=== PATIENT | female | born 1950 | race Caucasian/White ===

== ENCOUNTER → 2016-08-12 | Outpatient (CLI) | payer OTHER ==
[2016-08-12 07:43] LABS: Blood Urea Nitrogen 13 mg/dL (7-17); Non-African American GFR(MDRD) >60 (>60 ml/min/1.73 sqM)
--- NOTE | 2016-08-12 13:03 | CT ---
EXAMINATION TYPE: CT abdomen pelvis w con DATE OF EXAM: 08/12/2016 COMPARISON: NONE INDICATION: Abdominal pain DLP: 383.10 mGycm, Automated exposure control for dose reduction was used. CONTRAST: 100 ml mL of Omnipaque 300. Study performed with Oral Contrast Patient was premedicated, no adverse reaction to contrast is reported. TECHNIQUE: Axial images were obtained from above the diaphragm to the pubic rami in the axial plane a t 5 mm thick sections. Reconstructed images are reviewed on the computer in the coronal plane. FINDINGS: Limited CT sections are obtained the lung bases. The lung bases are clear. Coronary artery calcific ations present. CT ABDOMEN: Liver: Normal Spleen: Normal Pancreas: Normal Adrenal glands: The adrenal glands are normal. Gallbladder: Surgically absent Kidneys: No masses are evident. No hydronephrosis is present. No cysts are present. Delayed images were obtained through the kidneys, which remain unremarkable. Aorta: Vascular calcification is within the aorta. Inferior vena cava: Normal. CT PELVIS: Loops of bowel within the abdomen and pelvis are normal. Diverticular changes are within the sigm oid colon. There is incomplete distention through the sigmoid colon. There are additional loops of artur wel lacking oral contrast are incompletely distended limiting their evaluation. Appendix: Not visualized Urinary bladder: Limited evaluation. Genitourinary structures: Uterus is unremarkable. No suspicious adnexal masses are evident. Osseous structures: No suspicious lytic or sclerotic lesions. IMPRESSIONS: 1. Sigmoid diverticulosis without acute diverticulitis. 2. No suspicious acute changes.
== END | disposition home or self-care (01) ==
LOC: RADCTMAIN 06:57
DX: K57.30 Diverticulosis of large intestine without perforation or abscess without bleeding (principal); R10.9 Unspecified abdominal pain
CPT/HCPCS: 82565; 84520; 74177; 36415; Q9967

== ENCOUNTER → 2018-09-22 | Outpatient (CLI) | payer OTHER | END | disposition home or self-care (01) | LOC: RADUSWWP 12:16 | DX: I73.9 Peripheral vascular disease, unspecified (principal) | CPT/HCPCS: 93922 ==

== ENCOUNTER → 2018-10-04 | Outpatient (CLI) | payer OTHER ==
--- NOTE | 2018-10-04 13:06 | BD ---
EXAMINATION TYPE: Axial Bone Density DATE OF EXAM: 10/04/2018 COMPARISON: NONE CLINICAL HISTORY: screening Height: 5' 1/2 Weight: 88 FRAX RISK QUESTIONS: Family History (Parent hip fracture): y Secondary Osteoporosis: 4. Malnutrition: y Current Tobacco Use: y RISK FACTORS HISTORY OF: Active: n Postmenopausal woman: y Poor Health: y MEDICATIONS: Additional Medications: vitamin D see complete list in PACS Additional History: EXAM MEASUREMENTS: Bone mineral densitometry was performed using the [employer] System. Bone mineral density as measured about the Lumbar spine is: ----- L1-L4(G/cm2): 1.193 T Score Values are as follows: ----- L2: -1.1 ----- L3: 0.4 ----- L4: 1.8 ----- L1-L4: 0.1 Bone mineral density about the R hip (g/cm2): 0.586 Bone mineral density about the L hip (g/cm2): 0.557 T Score values are as follows: -----R Neck: -3.2 -----L Neck: -3.5 -----R Total: -3.4 -----L Total: -3.6 IMPRESSION: Osteoporosis (T Score less than -2.5). There is increased fracture risk and therapy is usually indicated based on age. Re-Screen 1-2 years. NOTE: T-SCORE=SD OF THE YOUNG ADULT MEAN.
== END | disposition home or self-care (01) ==
LOC: RADBDWWP 12:14
DX: M81.8 Other osteoporosis without current pathological fracture (principal)
CPT/HCPCS: 77080

== ENCOUNTER → 2018-10-10 | Outpatient (CLI) | payer OTHER ==
--- NOTE | 2018-10-10 10:46 | US ---
EXAMINATION TYPE: US abdomen complete DATE OF EXAM: 10/10/2018 COMPARISON: CT 08/12/2016 CLINICAL HISTORY: Z72.0 Tobacco use. Pulsatile area in abdomen. EXAM MEASUREMENTS: Liver Length: 12.8 cm Gallbladder Wall: Surgically absent CBD: 0.3 cm Spleen: 9.5 cm Right Kidney: 9.2 x 3.5 x 4.4 cm Left Kidney: 9.0 x 4.1 x 4.4 cm Pancreas: Tail obscured by overlying bowel gas, visualized portions wnl Liver: Heterogeneous Gallbladder: Surgically absent Evidence for sonographic Carreno's sign: No CBD: wnl Spleen: wnl Right Kidney: No hydronephrosis or masses seen Left Kidney: No hydronephrosis or masses seen Upper IVC: wnl Abd Aorta: Moderate atherosclerotic changes visualized. Proximal portion appears ectatic. No sonogra phic evidence for AAA The liver is heterogeneous. The intrahepatic portion of the IVC is within normal limits. Common b ile duct is unremarkable. The visualized portions of the pancreas are homogenous. The spleen is unr emarkable. Kidneys are symmetric and free of hydronephrosis. No renal lesions are seen. IMPRESSION: Hepatic heterogeneity may reflect fatty liver. Correlate clinically.
== END | disposition home or self-care (01) ==
LOC: RADUSWWP 10:06
DX: Z72.0 Tobacco use (principal)
CPT/HCPCS: 76700

== ENCOUNTER 2020-10-14 12:06 | Emergency (ER) | payer OTHER ==
[2020-10-14 12:45] VITALS: RESP 18; TEMP 98.4
--- NOTE | 2020-10-14 13:39 | CT ---
EXAMINATION TYPE: CT brain wo con DATE OF EXAM: 10/14/2020 COMPARISON: 01/22/2010 HISTORY: 70-year-old female with pain after Posterior head injury 2 days ago. TECHNIQUE: Examination was done in axial plane without intravenous contrast. Coronal and sagittal r econstructions performed. CT DLP: 1092.4 mGycm Automated exposure control for dose reduction was used. FINDINGS: There is no evidence of acute intracranial hemorrhage, acute ischemic changes, mass, mass-effect, or extra-axial fluid collection. There is no effacement of cerebral sulci or basal subarachnoid cister ns. There is no hydrocephalus. There is no midline shift. Waldron-white matter distinction is preserv ed. There is moderate to marked bifrontal atrophy. Paranasal sinuses well pneumatized. The globes are intact. Minimal trapped fluid inferior most mastoi d air cells on both sides. IMPRESSION: Moderate to marked bifrontal atrophy. No acute intracranial abnormality seen.
--- NOTE | 2020-10-14 13:48 | ED ---
Head Injury HPI - General Chief complaint: Head Injury Stated complaint: head injury Time Seen by Provider: 10/14/20 12:49 Source: patient, RN notes reviewed Mode of arrival: ambulatory Limitations: no limitations - History of Present Illness Initial comments: This is a 70-year-old female presents emergency Department chief complaint of head injury. Patient states she slowly fell backwards striking her in the bathtub. Patient states she had no loss conscious but states she still has a headache from the other day. Patient doesn't know blood thinners or neck pain no blurred vision no nausea vomiting no focal weakness. - Related Data Allergies/Adverse reactions: Allergies Allergy/AdvReac Type Severity Reaction Status Date / Time Iodinated Contrast Media Allergy Rash/Hives Verified 10/14/20 12:40 Review of Systems ROS Statement: Those systems with pertinent positive or pertinent negative responses have been documented in the HPI. ROS Other: All systems not noted in ROS Statement are negative. Past Medical History Past Medical History: COPD, Hypertension Additional Past Medical History / Comment(s): crohns, History of Any Multi-Drug Resistant Organisms: None Reported Past Surgical History: Bowel Resection Additional Past Surgical History / Comment(s): x2, eye surgery Past Psychological History: Bipolar Smoking Status: Vaper Past Alcohol Use History: None Reported Past Drug Use History: None Reported General Exam Limitations: no limitations General appearance: alert, in no apparent distress Head exam: Present: atraumatic, normocephalic. Absent: normal inspection (Small hematoma posterior) Eye exam: Present: normal appearance, PERRL, EOMI. Absent: scleral icterus, conjunctival injection, periorbital swelling ENT exam: Present: normal exam, mucous membranes moist Neck exam: Present: normal inspection. Absent: tenderness, meningismus, lymphadenopathy Respiratory exam: Present: normal lung sounds bilaterally. Absent: respiratory distress, wheezes, rales, rhonchi, stridor Cardiovascular Exam: Present: regular rate, normal rhythm, normal heart sounds. Absent: systolic murmur, diastolic murmur, rubs, gallop, clicks Neurological exam: Present: alert, oriented X3, CN II-XII intact, reflexes normal. Absent: motor sensory deficit Course Vital Signs 10/14/20 12:40 Temperature 98.4 F Pulse Rate 73 Respiratory 18 Rate Blood Pressure 141/89 O2 Sat by Pulse 98 Oximetry Medical Decision Making - Medical Decision Making CT is unremarkable. Patient is a head contusion will be discharged in stable condition. Disposition Clinical Impression: Contusion of scalp Disposition: HOME SELF-CARE Condition: Stable Instructions (If sedation given, give patient instructions): Head Injury (ED) Additional Instructions: Please return to the Emergency Department if symptoms worsen or any other concerns. Is patient prescribed a controlled substance at d/c from ED?: No Referrals: [facility],Clinic [Primary Care Provider] - 1-2 days Time of Disposition: 13:48
[2020-10-14 14:02] VITALS: BP 138/79; PULSE 76
== END 2020-10-14 14:01 | disposition home or self-care (01) ==
LOC: EC 12:06
DX: S00.03XA Contusion of scalp, initial encounter (principal); I10 Essential (primary) hypertension; J44.9 Chronic obstructive pulmonary disease, unspecified; F17.290 Nicotine dependence, other tobacco product, uncomplicated; W18.2XXA Fall in (into) shower or empty bathtub, initial encounter
CPT/HCPCS: 70450; 99284

== ENCOUNTER 2022-05-09 11:35 | Inpatient (IN) | payer OTHER, MEDICARE ==
[2022-05-09] MEDS ORDERED: HYDROmorphone 0.5 MG/0.5 ML SYRINGE IVP STA (11:39)
[2022-05-09] MEDS ORDERED: ONDANSETRON 4 MG/2 ML VIAL IVP STA (11:39)
--- NOTE | 2022-05-09 11:51 | ED ---
Lower Extremity Injury HPI - General Chief Complaint: Extremity Injury, Lower Stated Complaint: lt hip injury Time Seen by Provider: 05/09/22 11:38 Source: patient, EMS, RN notes reviewed Mode of arrival: EMS Limitations: no limitations - History of Present Illness Initial Comments: This a 71-year-old female presents emergency Department chief complaint of slip and fall. Patient states she slipped on some ice onto her left hip. Patient complains of no head injury no loss conscious. Patient states that she has severe pain to her left hip with any movement. No prior orthopedic surgeries. Patient denies any blood thinners denies abdominal pain or back pain. Patient declined pain meds from EMS. - Related Data Allergies Allergy/AdvReac Type Severity Reaction Status Date / Time Iodinated Contrast Media Allergy Rash/Hives Verified 10/14/20 12:40 Review of Systems ROS Statement: Those systems with pertinent positive or pertinent negative responses have been documented in the HPI. ROS Other: All systems not noted in ROS Statement are negative. Past Medical History Past Medical History: COPD, Hypertension Additional Past Medical History / Comment(s): crohns, History of Any Multi-Drug Resistant Organisms: None Reported Past Surgical History: Bowel Resection Additional Past Surgical History / Comment(s): x2, eye surgery Past Psychological History: Bipolar Smoking Status: Vaper Past Alcohol Use History: None Reported Past Drug Use History: None Reported General Exam Limitations: no limitations General appearance: alert, in no apparent distress Head exam: Present: atraumatic, normocephalic, normal inspection Eye exam: Present: normal appearance, PERRL, EOMI. Absent: scleral icterus, conjunctival injection, periorbital swelling ENT exam: Present: normal exam, normal oropharynx, mucous membranes moist Neck exam: Present: normal inspection, full ROM. Absent: tenderness, meningismus, lymphadenopathy Respiratory exam: Present: normal lung sounds bilaterally. Absent: respiratory distress, wheezes, rales, rhonchi, stridor Cardiovascular Exam: Present: regular rate, normal rhythm, normal heart sounds. Absent: systolic murmur, diastolic murmur, rubs, gallop, clicks GI/Abdominal exam: Present: soft, normal bowel sounds. Absent: distended, tenderness, guarding, rebound, rigid Extremities exam: Present: other (Tenderness to left hip, there is some shortening noted unable to fully extend, neurovascular intact) Back exam: Present: full ROM. Absent: tenderness, paraspinal tenderness, vertebral tenderness Neurological exam: Present: alert, oriented X3, CN II-XII intact, reflexes normal. Absent: motor sensory deficit Course Vital Signs 05/09/22 11:42 Temperature 97.7 F Pulse Rate 76 Respiratory 20 Rate Blood Pressure 141/93 O2 Sat by Pulse 97 Oximetry Medical Decision Making - Medical Decision Making Was pt. sent in by a medical professional or institution (DEANDRA Kendrick, SCALES INSPECTOR, urgent care, hospital, or assisted...) When possible be specific @ -No Did you speak to anyone other than the patient for history (EMS, parent, family, police, friend...)? What history was obtained from this source @ -No Did you review nursing and triage notes (agree or disagree)? Why? @ -I reviewed and agree with nursing and triage notes Were old charts reviewed (outside hosp., previous admission, EMS record, old EKG, old radiological studies, urgent care reports/EKG's, assisted records)? Report findings @ -No old charts were reviewed Differential Diagnosis (chest pain, altered mental status, abdominal pain women, abdominal pain men, vaginal bleeding, weakness, fever, dyspnea, syncope, headache, dizziness, GI bleed, back pain, seizure, CVA, palpatations, mental health, musculoskeletal)? @ -Hip fracture, hip contusion, back pain, EKG interpreted by me (3pts min.). @ -As above X-rays interpreted by me (1pt min.). @ -Left hip x-ray shows fracture at base of neck, intertrochanteric region CT interpreted by me (1pt min.). @ -None done U/S interpreted by me (1pt. min.). @ -None done What testing was considered but not performed or refused? (CT, X-rays, U/S, labs)? Why? @ -None What meds were considered but not given or refused? Why? @ -None Did you discuss the management of the patient with other professionals (professionals i.e. DEANDRA Kendrick, SCALES INSPECTOR, lab, RT, psych nurse, social sciences instructor, banquet set up person, teacher, deputy probation officer, immigration case manager)? Give summary @ -Dr. Hernandez for admission for left hip fracture with consult to medicine medicine was consult. Was smoking cessation discussed for >3mins.? @ -No Was critical care preformed (if so, how long)? @ -No Were there social determinants of health that impacted care today? How? (Homelessness, low income, unemployed, alcoholism, drug addiction, transportation, low edu. Level, literacy, decrease access to med. care, fpc, rehab)? @ -No Was there de-escalation of care discussed even if they declined (Discuss DNR or withdrawal of care, Hospice)? DNR status @ -No What co-morbidities impacted this encounter? (DM, HTN, Smoking, COPD, CAD, Cancer, CVA, ARF, Chemo, Hep., AIDS, mental health diagnosis, sleep apnea, morbid obesity)? @ -None Was patient admitted / discharged? Hospital course, mention meds given and route, prescriptions, significant lab abnormalities, going to OR and other pertinent info. @ -Admitted patient has left hip fracture patient admitted to surgery with consult to medicine labs, EKG and chest x-ray were performed. Undiagnosed new problem with uncertain prognosis? @ -No Drug Therapy requiring intensive monitoring for toxicity (Heparin, Nitro, Insulin, Cardizem)? @ -No Were any procedures done? @ -No Diagnosis/symptom? @ -Fall, left hip fracture Acute, or Chronic, or Acute on Chronic? @ -[Acute Uncomplicated (without systemic symptoms) or Complicated (systemic symptoms)? @ -Uncomplicated Side effects of treatment? @ -No Exacerbation, Progression, or Severe Exacerbation? @ -No Poses a threat to life or bodily function? How? (Chest pain, USA, HI, pneumonia, PE, COPD, DKA, ARF, appy, cholecystitis, CVA, Diverticulitis, Homicidal, Suicidal, threat to staff... and all critical care pts) @ -No - Lab Data Result diagrams: 05/09/22 11:45 05/09/22 11:45 Lab Results 05/09/22 05/09/22 05/09/22 Range/Units 11:45 11:45 11:45 WBC 7.4 (3.8-10.6) k/uL RBC 3.84 (3.80-5.40) m/uL Hgb 13.6 (11.4-16.0) gm/dL Hct 39.3 (34.0-46.0) % MCV 102.5 H (80.0-100.0) fL MCH 35.3 H (25.0-35.0) pg MCHC 34.5 (31.0-37.0) g/dL RDW 14.1 (11.5-15.5) % Plt Count 119 L (150-450) k/uL MPV 8.2 Neutrophils % 86 % Lymphocytes % 9 % Monocytes % 4 % Eosinophils % 0 % Basophils % 1 % Neutrophils # 6.4 (1.3-7.7) k/uL Lymphocytes # 0.6 L (1.0-4.8) k/uL Monocytes # 0.3 (0-1.0) k/uL Eosinophils # 0.0 (0-0.7) k/uL Basophils # 0.0 (0-0.2) k/uL Macrocytosis Slight PT 11.0 (9.0-12.0) sec INR 1.0 (<1.2) APTT 22.6 (22.0-30.0) sec Sodium 138 (137-145) mmol/L Potassium 3.8 (3.5-5.1) mmol/L Chloride 110 H (98-107) mmol/L Carbon Dioxide 19 L (22-30) mmol/L Anion Gap 9 mmol/L BUN 23 H (7-17) mg/dL Creatinine 0.73 (0.52-1.04) mg/dL Est GFR (CKD-EPI)AfAm >90 (>60 ml/min/1.73 sqM) Est GFR (CKD-EPI)NonAf 83 (>60 ml/min/1.73 sqM) Glucose 144 H (74-99) mg/dL Calcium 8.8 (8.4-10.2) mg/dL Total Bilirubin 0.7 (0.2-1.3) mg/dL AST 35 (14-36) U/L ALT 21 (4-34) U/L Alkaline Phosphatase 78 (38-126) U/L Total Protein 6.5 (6.3-8.2) g/dL Albumin 4.0 (3.5-5.0) g/dL Disposition Clinical Impression: Hip fracture, left Disposition: ADMITTED IP TO THIS HOSP Condition: Fair Referrals: [facility],Clinic [Primary Care Provider] - 1-2 days Time of Disposition: 12:31
[2022-05-09 12:05] LABS: Basophils % (A) 1 %; Eosinophils % (A) 0 %; HCT 39.3 % (34.0-46.0); HGB 13.6 gm/dL (11.4-16.0); Lymphocytes # (A) 0.6 k/uL (1.0-4.8); Lymphocytes % (A) 9 %; MCH 35.3 pg (25.0-35.0); MCHC 34.5 g/dL (31.0-37.0); MCV 102.5 fL (80.0-100.0); Macrocytosis Slight; Mean Platelet Volume 8.2; Monocytes # (A) 0.3 k/uL (0-1.0); Monocytes % (A) 4 %; Neutrophils # (A) 6.4 k/uL (1.3-7.7); Neutrophils % (A) 86 %; Platelet Count 119 k/uL (150-450); RBC 3.84 m/uL (3.80-5.40); RDW 14.1 % (11.5-15.5); WBC 7.4 k/uL (3.8-10.6)
[2022-05-09 12:18] LABS: ALT 21 U/L (4-34); AST 35 U/L (14-36); African American GFR (CKD) >90 (>60 ml/min/1.73 sqM); Alkaline Phosphatase 78 U/L (38-126); Anion Gap 9 mmol/L; Blood Urea Nitrogen 23 mg/dL (7-17); Calcium 8.8 mg/dL (8.4-10.2); Carbon Dioxide 19 mmol/L (22-30); Chloride 110 mmol/L (98-107); Glucose 144 mg/dL (74-99); Non-African American GFR(CKD) 83 (>60 ml/min/1.73 sqM); Potassium 3.8 mmol/L (3.5-5.1); Sodium 138 mmol/L (137-145); Total Bilirubin 0.7 mg/dL (0.2-1.3); Total Protein 6.5 g/dL (6.3-8.2)
--- NOTE | 2022-05-09 12:22 | XR ---
EXAMINATION TYPE: XR chest 1V DATE OF EXAM: 05/09/2022 12:14 PM COMPARISON: Chest radiographs from 01/22/2010 TECHNIQUE: XR chest 1V Portable AP radiograph of the chest. CLINICAL INDICATION:Female, 71 years old with history of pain; FINDINGS: Lungs/Pleura: There is no evidence of pleural effusion, focal consolidation, or pneumothorax. Pulmonary vascularity: Unremarkable. Heart/mediastinum: Cardiomediastinal silhouette is unremarkable. Musculoskeletal: No acute osseous pathology. IMPRESSION: No acute cardiopulmonary disease/process.
--- NOTE | 2022-05-09 12:22 | XR ---
EXAMINATION TYPE: XR Hip LT and AP Pelvis DATE OF EXAM: 05/09/2022 12:14 PM INDICATION: Patient age:Female; 71 years old; Reason for study: pain; PHH. COMPARISON: None. TECHNIQUE: The left hip was examined in the frontal and lateral projections and a AP pelvis. FINDINGS: Comminuted fractures of the left proximal femur with varus deformity. Suspected to femoral neck base/intertrochanteric with shortening present. The remainder of the pelvic structures appear intact. There is mild degeneration with osteophyte formation of the hips. Multilev el disc degeneration changes seen in the lower spine. IMPRESSION: Comminuted left proximal femur fracture with varus deformity.
[2022-05-09 12:26] LABS: Partial Thromboplastin Time 22.6 sec (22.0-30.0)
[2022-05-09] MEDS ORDERED: NALOXONE 0.4 MG/ML 1 ML VIAL IV PRN (12:42)
[2022-05-09] MEDS ORDERED: LORazepam 0.5 MG TAB PO PRN (12:42)
[2022-05-09] MEDS ORDERED: ACETAMINOPHEN TAB 325 MG TAB PO PRN (12:42)
[2022-05-09] MEDS ORDERED: ONDANSETRON 4 MG/2 ML VIAL IVP PRN (12:42)
[2022-05-09] MEDS ORDERED: LORazepam 1 MG TAB PO STA (13:36)
--- NOTE | 2022-05-09 14:09 | P.CONS ---
History of Present Illness - Reason for Consult Consult date: 05/09/22 - Chief Complaint Medical clearance - History of Present Illness 71-year-old woman with medical history of COPD, Crohn's disease with previous colovesicular fistula requiring surgical repair, bipolar disorder, benzodiazepine dependence, severe protein calorie malnutrition who presented after mechanical fall resulting in left hip fracture. Orthopedic surgery consult to medical team for preoperative clearance as well as medical management. Patient says that she was trying to shovel snow from her driveway when she had a mechanical fall by slipping on ice and fell pain in her left hip. Afterwards, she was brought in by ambulance to the hospital for further evaluation. 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 She does not have any steps at home and lives on a one floor. Patient denies drinking, reports having quit smoking many years ago after significant smoke exposure resulting in COPD. She says she was also diagnosed with bipolar disorder by the [place] and is taking topiramate, fluoxetine, Ativan 1 mg 3 times a day for this. She also reports taking a "orange powder" for her Crohn's disease, which a quick search on the Internet seems to indicate is budesonide. During her history taking, she also notes that she's been having a pulsatile abdominal mass for the last 10-15 years and it seems like it's gotten bigger according to her, and according to her friend who is at bedside, she's had increasing discoloration of her lower extremities to the point where they are dark purple to sometimes black. Otherwise, patient denies fevers, chills, nausea, vomiting, chest pain, palpitations, syncope, presyncope, cough, dyspnea, abdominal pain, constipation, diarrhea, dysuria, dyschezia, numbness/weakness of extremities. In the emergency room, patient was afebrile, 141/93, heart rate 76, 97% on room air. CBC is remarkable for an MCV of 102.5 but normal hemoglobin of 13.6, thrombocytopenia to 119. Chemistries show chloride of 110, carbon dioxide of 19, no anion gap, BUN is 23, creatinine is 0.73. Liver function tests are unremarkable. Coags are unremarkable. Chest x-ray shows hyperinflation with left hemidiaphragmatic paralysis, flattening of the right hemidiaphragm, otherwise clear parenchyma. Hip/pelvis x-ray shows comminuted left proximal femur fracture with varus deformity. Orthopedic surgery service admit the patient and requested medical consultation. All Systems reviewed and pertinent positives and negatives noted in HPI, all other symptoms are negative Gen: in no apparent distress, resting comfortably in bed, appears generally tremulous, elderly, cachectic Eyes: PERRL, no scleral injection or icterus HENT: normocephalic, atraumatic, good hearing acuity, moist mucous membranes Neck: no tracheal deviation, full range of motion Resp: good air exchange, breathing comfortably with no accessory muscle use, no tactile fremitus, clear to auscultation bilaterally CVS: good distal perfusion x 4, no pitting edema, regular rate and rhythm without murmurs GI: soft, NTTP, ND, no hepatosplenomegaly, palpable pulsatile mass of approximately 6-7 cm : no suprapubic tenderness, no CVAT, herrera catheter not present MSK: no clubbing, no cyanosis, no noted contractures of extremities, poor capillary refill taking 4-5 seconds and the bilateral lower extremities, poor dorsal pedis pulse bilaterally, good tibialis posterior pulses bilaterally Skin: no noted rashes, petechiae; temperature of skin is appropriate Neuro: moving all extremities without signs of weakness, CN II-XII intact Psych: cooperative, euthymic mood, insight and judgment intact Labs and imaging as above Assessment: Preoperative clearance Abdominal pulsatile mass Severe protein calorie malnutrition COPD without exacerbation Benzodiazepine dependence Bipolar disorder History of Crohn's disease Plan: Vital signs reviewed and noted in HPI Labs including CBC, BMP, liver function tests, coags are reviewed and noted in HPI Chest x-ray is personally interpreted noted in HPI Hip/pelvis x-ray is reviewed and noted in HPI Case was discussed with the orthopedic surgery service regarding possibility of patient's abdominal aortic aneurysm as well as vasculopathy which may affect healing, this should not preclude patient from being cleared medically for surgery while we work simultaneously to optimize vascular risk factors Case was also discussed with vascular surgery who recommended imaging of abdominal aorta with runoff as well as ankle-brachial indexes bilaterally NSQIP risk calculator estimates the risk of mace at 0.2% for this procedure which is average. However, I do feel like this is an underestimate of this patient's risk of surgical complication given likely peripheral arterial disease as well as her severe protein calorie malnutrition as evidenced by her BMI 14.2 and significant cachexia on exam; however, patient's METs estimation is greater than 4, there is no contraindication to surgery at this time, patient may proceed without further need of testing I ordered CT abdominal aorta with runoff to evaluate for abdominal aortic aneurysm as well as peripheral arterial disease Ankle-brachial indexes have been ordered CBC, basic metabolic panel, magnesium ordered for tomorrow Resume 1 mg by mouth Ativan 3 times a day for patient's benzodiazepine de pendence Remaining medication reconciliation is pending medication history completion Patient is adamantly DO NOT RESUSCITATE/DO NOT INTUBATE, but does understand that CODE STATUS must be reversed for 24 hours following her surgery Patient's DURABLE POWER OF GALLERY OR MUSEUM CURATOR is at bedside Past Medical History Past Medical History: COPD, Hypertension Additional Past Medical History / Comment(s): crohns, History of Any Multi-Drug Resistant Organisms: None Reported Past Surgical History: Bowel Resection Additional Past Surgical History / Comment(s): x2, eye surgery Past Psychological History: Bipolar Smoking Status: Vaper Past Alcohol Use History: None Reported Past Drug Use History: None Reported Medications and Allergies Allergies Allergy/AdvReac Type Severity Reaction Status Date / Time Iodinated Contrast Media Allergy Rash/Hives Verified 10/14/20 12:40 Physical Exam Osteopathic Statement: *. No significant issues noted on an osteopathic structural exam other than those noted in the History and Physical/Consult. Vitals: Vital Signs Temp Pulse Resp BP Pulse Ox 05/09/22 11:42 97.7 F 76 20 141/93 97 Intake and Output 05/08/22 05/09/22 05/09/22 22:59 06:59 14:59 Other: Weight 37.648 kg Results CBC & Chem 7: 05/09/22 11:45 05/09/22 11:45 Labs: Abnormal Lab Results - Last 24 Hours (Table) 05/09/22 05/09/22 Range/Units 11:45 11:45 MCV 102.5 H (80.0-100.0) fL MCH 35.3 H (25.0-35.0) pg Plt Count 119 L (150-450) k/uL Lymphocytes # 0.6 L (1.0-4.8) k/uL Chloride 110 H (98-107) mmol/L Carbon Dioxide 19 L (22-30) mmol/L BUN 23 H (7-17) mg/dL Glucose 144 H (74-99) mg/dL
[2022-05-09] MEDS ORDERED: diphenhydrAMINE 50 MG/ML 1 ML VIAL IVP STA (14:41)
[2022-05-09] MEDS ORDERED: methylPREDNISolone SOD SUCCIN 125 MG in SODIUM CHLORIDE 0.9% 100 ML IVPB STA (14:41)
[2022-05-09] MEDS ORDERED: FAMOTIDINE 20 MG/2 ML VIAL IV STA (14:41)
[2022-05-09] MEDS ORDERED: methylPREDNISolone SOD SUCCI 125 MG/2 ML VIAL IVP STA (14:50)
--- NOTE | 2022-05-09 15:38 | US ---
EXAMINATION TYPE: US duplex aorta DATE OF EXAM: 05/09/2022 COMPARISON: NONE CLINICAL HISTORY: AAA aneurysm. TECHNIQUE: Multiple sonographic images of the abdominal aorta are obtained. FINDINGS: EXAM MEASUREMENTS: Abdominal Aorta: Proximal: 2.3 x 2.9 cm Mid: 2.1 x 2.2 cm Distal: 1.7 x 1.6 cm Bifurcation: right, 1.5 x 1.2 cm left,1.3 x 1.2 cm TENNIS INSTRUCTOR NOTES: Normal caliber, heavily calcified aorta. IMPRESSION: Marked atherosclerotic changes of the abdominal aorta and common iliac arteries but no evidence of an eurysm.
[2022-05-09] MEDS: HYDROmorphone 0.5 MG/0.5 ML SYRINGE IVP PRN ×3 (15:42→23:20)
[2022-05-09] MEDS: SYMBICORT 160-4.5 MCG INHALER INHALATION SCH (20:42)
[2022-05-10] MEDS: HYDROmorphone 0.5 MG/0.5 ML SYRINGE IVP PRN ×6 (03:23→20:54)
[2022-05-10] MEDS: LEVOTHYROXINE 25 MCG TAB PO SCH (06:19)
[2022-05-10] MEDS ORDERED: ONDANSETRON 4 MG/2 ML VIAL IVP PRN (07:00)
[2022-05-10] MEDS ORDERED: HYDROmorphone 0.5 MG/0.5 ML SYRINGE IVP PRN ×3 (07:00→09:36)
[2022-05-10] MEDS: CHOLECALCIFEROL 25 MCG (1000 IU) TABLET PO SCH (07:00)
--- NOTE | 2022-05-10 07:56 | P.HPOR ---
History of Present Illness H&P Date: 05/10/22 Patient is a 71-year-old female past medical history Crohn disease, COPD that presented to [facility] emergency department yesterday with complaints of left hip pain following a fall at home. Patient states she was shoveling snow when she slipped and ice. She fell directly onto the left hip. She is unable to get up on her own. A bystander saw her lying on the ground, and called EMS. EMS transported to [facility] emergency department. X-rays in the emergency department revealed a left intertrochanteric hip fracture. The patient was admitted under the care of Dr. Hernandez with a consult placed to internal medicine for preoperative medical evaluation. The patient is examined bedside this morning. She is complaining of isolated left hip pain. She states she did not hit her head when she fell. Per nursing, patient refused CT with runoff that was recommended by vascular surgery. Abdominal ultrasound was ordered due to concern for abdominal aortic aneurysm. The patient has no additional Kevin concerns at this time. Vital signs stable. Past Medical History Past Medical History: COPD, Hypertension Additional Past Medical History / Comment(s): crohns, History of Any Multi-Drug Resistant Organisms: None Reported Past Surgical History: Bowel Resection Additional Past Surgical History / Comment(s): x2, eye surgery Past Anesthesia/Blood Transfusion Reactions: No Reported Reaction Past Psychological History: Bipolar Smoking Status: Vaper Past Alcohol Use History: None Reported Past Drug Use History: None Reported Medications and Allergies Home Medications Medication Instructions Recorded Confirmed Type Albuterol Inhaler [Ventolin Hfa 2 puff INHALATION RT-Q6H PRN 05/09/22 05/09/22 History Inhaler] Cetirizine HCl 10 mg PO DAILY 05/09/22 05/09/22 History Cholecalciferol [Vitamin D3 (25 50 mcg PO DAILY 05/09/22 05/09/22 History Mcg = 1000 Iu)] Cholestyramine (with Sugar) 1 tsp PO BID 05/09/22 05/09/22 History [Cholestyramine Powder] Cyclobenzaprine [Flexeril] 5 mg PO BID PRN 05/09/22 05/09/22 History Dicyclomine [Bentyl] 10 mg PO BID PRN 05/09/22 05/09/22 History Ibuprofen [Motrin] 600 mg PO Q8HR PRN 05/09/22 05/09/22 History LORazepam [Ativan] 1 mg PO TID 05/09/22 05/09/22 History Lactose-Reduced Food [Ensure Plus] 2 can PO BID 05/09/22 05/09/22 History Levothyroxine Sodium [Synthroid] 25 mcg PO DAILY 05/09/22 05/09/22 History Loperamide [Imodium] 4 mg PO TID PRN 05/09/22 05/09/22 History Mometasone/Formoterol [Dulera 200 1 puff INHALATION RT-BID 05/09/22 05/09/22 History Mcg-5 Mcg Inhaler] Sertraline [Zoloft] 200 mg PO DAILY 05/09/22 05/09/22 History Topiramate 50 mg PO DAILY 05/09/22 05/09/22 History azaTHIOprine [Imuran] 50 mg PO DAILY 05/09/22 05/09/22 History metroNIDAZOLE 1% GEL [Metrogel 1%] 1 applic TOPICAL DAILY PRN 05/09/22 05/09/22 History Allergies Allergy/AdvReac Type Severity Reaction Status Date / Time Iodinated Contrast Media Allergy Rash/Hives Verified 05/09/22 14:13 Physical Examination On examination, the patient is sitting up about an open distress. She is alert and oriented 3. Her head appears normocephalic and atraumatic. Her breathing appears nonlabored. On inspection of her bilateral upper extremities, there are no obvious deformities or signs of trauma. On inspection of her right lower extremity, no obvious deformities or signs of trauma. No pain with range of motion of the right hip. On inspection of the left hip, there are no open wounds or lacerations. There is diffuse severe pain with any attempt at range of motion of the left hip. No pain with palpation of the left hip, knee, lower leg, ankle, foot. Motor and sensory function is intact of the left lower extremity. Left posterior tibial pulse is palpated. Results Left hip and pelvis x-rays reviewed. - Labs Labs: Abnormal Lab Results - Last 24 Hours (Table) 05/09/22 05/09/22 Range/Units 11:45 11:45 MCV 102.5 H (80.0-100.0) fL MCH 35.3 H (25.0-35.0) pg Plt Count 119 L (150-450) k/uL Lymphocytes # 0.6 L (1.0-4.8) k/uL Chloride 110 H (98-107) mmol/L Carbon Dioxide 19 L (22-30) mmol/L BUN 23 H (7-17) mg/dL Glucose 144 H (74-99) mg/dL H & H 05/09/22 Range/Units 11:45 Hgb 13.6 (11.4-16.0) gm/dL Hct 39.3 (34.0-46.0) % Coagulation 05/09/22 Range/Units 11:45 INR 1.0 (<1.2) Result Diagrams: 05/09/22 11:45 05/09/22 11:45 Assessment and Plan Assessment: Left intertrochanteric hip fracture Plan: - Clinical and imaging findings were discussed with the patient. Patient was discussed in detail with Dr. Hernandez. Recommend the left hip gamma nail for patient's left intertrochanteric hip fracture. The procedure was discussed with the patient. Risks were discussed with the patient. She gave verbal consent for procedure. Patient is cleared per internal medicine. - Strict nonweightbearing of lower extremity. - We will plan for this morning. NPO diet.
[2022-05-10] MEDS ORDERED: ROCURONIUM 10 MG/ML (5 ML VIAL) IV ONE (07:57)
[2022-05-10] MEDS ORDERED: LIDOCAINE 2% INJ 20 MG/ML (2 ML VIAL) ONE (07:57)
[2022-05-10] MEDS ORDERED: fentaNYL (PF) 50 MCG/ML 2 ML AMP ONE (07:57)
[2022-05-10] MEDS ORDERED: PROPOFOL 10 MG/ML 20 ML VIAL IV ONE (07:57)
[2022-05-10] MEDS ORDERED: IV FLUID CONTINUATION 1,000 ML IV ONE (07:57)
[2022-05-10] MEDS ORDERED: PHENYLEPHRINE-0.9% NACL SYG 1,000 MCG/10 ML SYRINGE ONE (07:57)
[2022-05-10] MEDS ORDERED: GLYCOPYRROLATE 0.2 MG/ML 2 ML VIAL ONE (07:57)
[2022-05-10] MEDS ORDERED: SODIUM CHLORIDE 0.9% 50 ML with ceFAZolin 1,000 MG IV ONE ×2 (07:57)
[2022-05-10] MEDS ORDERED: NEOSTIGMINE 1 MG/ML 10 ML VIAL ONE (07:57)
[2022-05-10] MEDS ORDERED: ONDANSETRON 4 MG/2 ML VIAL ONE (07:57)
[2022-05-10] MEDS ORDERED: DEXAMETHASONE SOD PHOS (MDV) 100 MG/10 ML VIAL ONE (07:57)
[2022-05-10] MEDS ORDERED: SUCCINYLCHOLINE CHLORIDE 200 MG/10 ML VIAL IV ONE (07:57)
[2022-05-10] MEDS: SYMBICORT 160-4.5 MCG INHALER INHALATION SCH ×2 (08:26→19:38)
[2022-05-10 08:58] LABS: Basophils # (A) 0.07 X 10*3/uL (0.00-0.10); Basophils % (A) 0.7 %; Eosinophils # (A) 0.01 X 10*3/uL (0.04-0.35); Eosinophils % (A) 0.1 %; HCT 31.8 % (37.2-46.3); HGB 10.5 g/dL (12.0-15.0); Immature Grans, Automated 0.2 %; Lymphocytes # (A) 1.58 X 10*3/uL (0.90-5.00); Lymphocytes % (A) 16.4 %; MCH 34.7 pg (27.0-32.0); Mean Platelet Volume 11.1 fL (9.5-12.2); Monocytes # (A) 0.95 X 10*3/uL (0.20-1.00); Monocytes % (A) 9.9 %; NRBC Per 100 WBC 0 /100 WBCS (0.0-0.0); Neutrophils % (A) 72.7 %; Platelet Count 158 X 10*3/uL (140-440); RBC 3.03 X 10*6/uL (4.10-5.20); RDW 14.4 % (11.5-14.5); WBC 9.63 X 10*3/uL (4.50-10.00)
[2022-05-10 09:10] LABS: African American GFR (CKD) 37.2 (60.0-200.0); Anion Gap 9.1 mmol/L (10.00-18.00); BUN/Creat Ratio 18.81 Ratio (12.00-20.00); Blood Urea Nitrogen 30.1 mg/dL (9.0-27.0); Calcium 9.2 mg/dL (8.7-10.3); Carbon Dioxide 22.9 mmol/L (20.0-27.5); Magnesium 1.9 mg/dL (1.5-2.4); Non-African American GFR(CKD) 32.1 (60.0-200.0); Potassium 4.6 mmol/L (3.5-5.5)
--- NOTE | 2022-05-10 09:19 | P.OP ---
Date of Procedure: 05/10/22 Preoperative Diagnosis: 1. Left intertrochanteric hip fracture 2. BMI 14 3. Anxiety 4. Osteoporosis Postoperative Diagnosis: Same Procedure(s) Performed: Operative fixation of left intertrochanteric hip fracture with short intramedullary hip screw Anesthesia: NANDINI Surgeon: Brian Hernandez Community Health Representative #1: Ivette Coker Estimated Blood Loss (ml): 100 IV fluids (ml): 1,000 Pathology: none sent Condition: stable Disposition: PACU Indications for Procedure: I met with the patient and their family preoperatively to discuss their injury and treatment options. They have an extra-capsular, intertrochanteric hip fracture and my recommendation was to stabilize the fracture with an intramedullary hip screw to facilitate early mobilization. We discussed the potential risks and complications of this surgical procedure including but certainly not limited to risks from anesthesia, superficial infection, deep infection, fracture nonunion, fracture malunion, hardware failure including broken hardware, varus collapse with lag screw cut out of the femoral head, progression of hip arthritis, limb length discrepancy, symptomatic hardware, need for further surgery including hardware removal and conversion to arthroplasty, DVT, PE, acute coronary event, pressure ulcers, urinary tract infection, failure to thrive, an inability to regain preinjury level of function, and possibly . The patient and their family understand these potential complications and also awknowledge that other less common complications are possible. They provided both their verbal and written consent to go forward with operative fixation of their hip fracture with an intramedullary hip screw. Operative Findings: The fracture reduced with the addition of traction, rotation, and adduction on the Basco table. After making incision and attempting to get the start site was found that the greater trochanter was a free piece and was markedly displaced. Description of Procedure: The patient was identified in preoperative holding and the correct operative extremity was marked with my initials. I reviewed the consent form with the patient and their family and all of their questions were answered. The patient was then brought back to the operating room by anesthesia. Anesthesia, preoperative antibiotics, and tranexamic acid were given by the anesthesia team while on the rney. Both ankles were padded with webril and boots for the Basco table were applied. The patient was then carefully transferred onto the Basco table. A perineal post was immediately placed. The contralateral arm was secured on a well-padded arm magana. The ipsilateral arm was draped across the chest and secured with a pillow, foam, and paper tape to allow access to the proximal femur. Nonsterile drapes were applied to the operative extremity. The height of the table was elevated and the contralateral extremity was dropped towards the floor to facilitate imaging. A timeout was performed identifying the correct patient, operative extremity, and procedure. Fluoroscopy was brought in to assess the fracture. A provisional reduction was performed using longitudinal traction, adduction, and internal rotation. An AP and lateral view were obtained to assess the reduction. The operative extremity was then prepped and draped in the standard sterile fashion. A straight incision was made at the tip of the greater trochanter and extended proximally for 3 cm. Skin and subcutaneous tissues were incised sharply. The underlying fascia was incised in line with the skin incision. An awl was place d just medial to the tip of the greater trochanter on the AP view and colinear with the canal on the lateral view. A 3.2 mm guide pin was then advanced into the proximal femur. The position of the guidepin was verified with fluoroscopy. An opening reamer and soft tissue cannula were placed over the guidepin and used to open the proximal femur to the level of the lesser trochanter. The 3.2 mm guide pin and opening reamer were removed. A short gamma nail was dispensed, hooked up to the targeting arm and I verified that the trochar through the targeting arm lined up with the slots on the nail. The nail was then impacted into the proximal femur until the appropriate depth had been reached. A small stab incision was made over the lateral aspect of the femur using the targeting arm as a reference for the lag screw. Incision was carried down to the skin and fascia down to the lateral cortex of the femur. The trocar was then placed up to the lateral cortex of the femur and a guidepin was placed in the low center position on the AP view and centered in the femoral head on the lateral view. Once the position of the guidewire was verified, we reamed to appropriate depth and placed a lag screw over the guidewire and into the femoral head. The position of the lag screw was assessed with fluoroscopy. The guidewire was then removed from the femoral head. The set screw was placed proximally, brought fully down and then released a quarter turn to allow compression. A final stab incision was made over the lateral femur at the site of the distal interlocking screw, again using the targeting arm as a reference. The trocar and sleeve were placed to the lateral cortex of the femur. We then drilled and placed a distal interlocking screw. Final fluoroscopic images were taken showing excellent reduction of the fracture and appropriate position of the implants. All wounds were thoroughly irrigated and closed in layers. Sterile dressings were applied. The drapes were taken down, the patient was transferred off the Basco table, and was brought to recovery having tolerated the procedure well. Ivette Coker PA-C was required as a skilled glass ribbon machine operator assistant for patient positioning, retraction, placement of implants, closure of wounds, and application of dressings. PLAN: The patient can weight-bear as tolerated on their operative extremity. 2 doses of postoperative antibiotics. DVT prophylaxis with aspirin 81 mg twice a day starting the day of surgery. Dressing change on postoperative day #2. Appreciate Internal Medical assistance with perioperative medical management. D ischarge planning in process.
--- NOTE | 2022-05-10 09:50 | FL ---
Intraoperative/procedural fluoroscopic services were provided. Total fluoroscopy time is 1 minute 24 seconds with a total of 6 submitted images to PACS. Please see the operative/procedural note for fur ther details. DAP: 5.5559
[2022-05-10] MEDS: azaTHIOprine 50 MG TAB PO SCH (10:24)
[2022-05-10] MEDS: LORATADINE 10 MG TAB PO SCH (10:24)
[2022-05-10] MEDS: TOPIRAMATE 25 MG TAB PO SCH (10:24)
[2022-05-10] MEDS: SERTRALINE 100 MG TAB PO SCH (10:24)
[2022-05-10] MEDS: LACTATED RINGERS 1,000 ML IV SCH ×2 (10:25→11:16)
[2022-05-10] MEDS: ALBUTEROL HFA INHALER INHALATION PRN ×2 (11:37→19:38)
[2022-05-10 11:51] LABS: Basophils % (A) 0 %; Eosinophils % (A) 0 %; HCT 26.8 % (34.0-46.0); HGB 9.2 gm/dL (11.4-16.0); Lymphocytes # (A) 0.3 k/uL (1.0-4.8); Lymphocytes % (A) 3 %; MCH 35.2 pg (25.0-35.0); MCHC 34.2 g/dL (31.0-37.0); MCV 102.7 fL (80.0-100.0); Macrocytosis Slight; Mean Platelet Volume 8.4; Monocytes # (A) 0.2 k/uL (0-1.0); Monocytes % (A) 2 %; Neutrophils # (A) 9.8 k/uL (1.3-7.7); Neutrophils % (A) 94 %; Platelet Count 164 k/uL (150-450); RBC 2.61 m/uL (3.80-5.40); RDW 14.6 % (11.5-15.5); WBC 10.5 k/uL (3.8-10.6)
--- NOTE | 2022-05-10 11:54 | P.PN ---
Subjective Progress Note Date: 05/10/22 Patient was seen postoperatively, doing well with no complaints, pain is well controlled. Gen: awake, alert HEENT: normocephalic, atraumatic, good hearing acuity, moist mucous membranes Resp: good air exchange, breathing comfortably with no accessory muscle use CVS: good distal perfusion x 4, GI: soft, NTTP, ND : no SPT, no CVAT, herrera catheter not present MSK: no pitting edema, no clubbing Neuro: non-focal, moving all extremities Psych: cooperative, euthymic mood Hospital course: 71-year-old woman with medical history of COPD, Crohn's disease with previous colovesicular fistula requiring surgical repair, bipolar disorder, benzodiazepine dependence, severe protein calorie malnutrition who presented after mechanical fall resulting in left hip fracture. Orthopedic surgery consult to medical team for preoperative clearance as well as medical management. In the emergency room, patient was afebrile, 141/93, heart rate 76, 97% on room air. CBC is remarkable for an MCV of 102.5 but normal hemoglobin of 13.6, thrombocytopenia to 119. Chemistries show chloride of 110, carbon dioxide of 19, no anion gap, BUN is 23, creatinine is 0.73. Liver function tests are u nremarkable. Coags are unremarkable. Chest x-ray shows hyperinflation with left hemidiaphragmatic paralysis, flattening of the right hemidiaphragm, otherwise clear parenchyma. Hip/pelvis x-ray shows comminuted left proximal femur fracture with varus deformity. Orthopedic surgery service admit the patient and requested medical consultation. Assessment: Preoperative clearance Acute kidney injury Acute blood loss anemia, expected complication of surgery Abdominal pulsatile mass Severe protein calorie malnutrition COPD without exacerbation Benzodiazepine dependence Bipolar disorder History of Crohn's disease Plan: Vital signs reviewed , patient is afebrile, 96/66, heart rate 92, 100% on room air. CBC today shows hemoglobin of 10.5, down from 13.6, otherwise unremarkable. BMP shows BUN of 30.1, up from 23, creatinine is 1.6, up from 0.73 Case was discussed with the orthopedic surgery service, patient underwent successful intramedullary nail placement Abdominal ultrasound did not demonstrate any evidence of abdominal aortic aneur ysm Ankle-brachial indexes have been ordered and the read is pending CBC, basic metabolic panel, magnesium ordered for tomorrow Urinalysis, urine sodium, urine protein ordered for today Lactated Ringer's started at 50 mL per hour Renal ultrasound ordered for acute kidney injury Start ferrous sulfate 325 mg daily Continue 1 mg by mouth Ativan 3 times a day for patient's benzodiazepine dependence Patient is adamantly DO NOT RESUSCITATE/DO NOT INTUBATE, but does understand that CODE STATUS must be reversed for 24 hours following her surgery Patient's DURABLE POWER OF KNIT TUBING DYER is her friend who is at bedside during admission, and again today postoperatively Objective - Vital Signs Vital signs: Vital Signs Temp 97.8 F 05/10/22 10:30 Pulse 92 05/10/22 10:30 Resp 17 05/10/22 10:30 BP 96/66 05/10/22 10:30 Pulse Ox 100 05/10/22 10:30 FiO2 Intake & Output 05/09/22 05/10/22 05/10/22 17:59 06:59 18:59 Intake Total 900 Output Total 125 Balance 775 Weight Intake: IV 900 Oral Output: Urine 50 Estimated Blood Loss 75 - Labs CBC & Chem 7: 05/10/22 04:58 05/10/22 04:58 Labs: Abnormal Lab Results - Last 24 Hours (Table) 05/09/22 05/09/22 05/10/22 Range/Units 11:45 11:45 04:58 RBC 3.03 L (4.10-5.20) X 10*6/uL Hgb 10.5 L (12.0-15.0) g/dL Hct 31.8 L (37.2-46.3) % MCV 102.5 H 105.0 H (80.0-100.0) fL MCH 35.3 H 34.7 H (25.0-35.0) pg Plt Count 119 L (150-450) k/uL Lymphocytes # 0.6 L (1.0-4.8) k/uL Eosinophils # 0.01 L (0.04-0.35) X 10*3/uL Chloride 110 H (98-107) mmol/L Carbon Dioxide 19 L (22-30) mmol/L Anion Gap (10.00-18.00) mmol/L BUN 23 H (7-17) mg/dL Creatinine (0.6-1.5) mg/dL Est GFR (CKD-EPI)AfAm (60.0-200.0) Est GFR (CKD-EPI)NonAf (60.0-200.0) Glucose 144 H (74-99) mg/dL 05/10/22 Range/Units 04:58 RBC (4.10-5.20) X 10*6/uL Hgb (12.0-15.0) g/dL Hct (37.2-46.3) % MCV (80.0-100.0) fL MCH (25.0-35.0) pg Plt Count (150-450) k/uL Lymphocytes # (1.0-4.8) k/uL Eosinophils # (0.04-0.35) X 10*3/uL Chloride (98-107) mmol/L Carbon Dioxide (22-30) mmol/L Anion Gap 9.10 L (10.00-18.00) mmol/L BUN 30.1 H (7-17) mg/dL Creatinine 1.6 H (0.6-1.5) mg/dL Est GFR (CKD-EPI)AfAm 37.2 L (60.0-200.0) Est GFR (CKD-EPI)NonAf 32.1 L (60.0-200.0) Glucose 148 H (74-99) mg/dL
[2022-05-10] MEDS: FERROUS SULFATE 325 MG TAB PO SCH (12:39)
[2022-05-10] MEDS ORDERED: LACTATED RINGERS 1,000 ML IV SCH (13:45)
--- NOTE | 2022-05-10 14:28 | US ---
EXAMINATION TYPE: US kidneys/renal and bladder DATE OF EXAM: 05/10/2022 COMPARISON: US abdomen 2019, CT abdomen and pelvis 2017 CLINICAL HISTORY: Acute kidney injury. Exam done portable EXAM MEASUREMENTS: Right Kidney: 7.9 x 4.4 x 3.8 cm Left Kidney: 8.6 x 4.0 x 3.6 cm Right Kidney: small in size, there is minimal fullness of the right renal pelvis without evidence for hydronephrosis. Normal cortical medullary differentiation. Left Kidney: small in size, normal cortical medullary differentiation. Bladder: not distended decompressed around a herrera catheter There is no evidence for hydronephrosis at this point in time. No nephrolithiasis is seen. No rohith s are identified. IMPRESSION: No evidence for hydronephrosis.
[2022-05-10 14:49] LABS: Creatinine,Urine Random 74.6 mg/dL
[2022-05-10 14:50] LABS: Appearance,Urine Cloudy (Clear); Bacteria,Urine Rare /hpf; Bilirubin,Urine Negative (Negative); Blood,Urine Large (Negative); Color,Urine Yellow; Glucose,Urine (UA) Negative (Negative); Ketones,Urine Negative (Negative); Leukocyte Esterase,Urine Large (Negative); Mucus,Urine Rare /hpf; Nitrite,Urine Negative (Negative); PH, Urine 5.5 (5.0-8.0); Protein,Urine 1+ (Negative); RBC,Urine >182 /hpf (0-5); Specific Gravity,Urine 1.013 (1.001-1.035); Squamous Epithelial Cell,Urine 20 /hpf (0-4); Urobilinogen,Urine <2.0 mg/dL (<2.0); WBC,Urine 22 /hpf (0-5)
[2022-05-10 18:11] LABS: African American GFR (CKD) 33 (>60 ml/min/1.73 sqM); Anion Gap 7 mmol/L; Blood Urea Nitrogen 33 mg/dL (7-17); Carbon Dioxide 22 mmol/L (22-30); Chloride 104 mmol/L (98-107); Glucose 127 mg/dL (74-99); Non-African American GFR(CKD) 28 (>60 ml/min/1.73 sqM); Potassium 4.7 mmol/L (3.5-5.1); Sodium 133 mmol/L (137-145)
[2022-05-10] MEDS: SENNOSIDES-DOCUSATE SODIUM 1 EACH TAB PO SCH (20:13)
[2022-05-10] MEDS: LORazepam 1 MG TAB PO PRN (20:14)
[2022-05-10] MEDS: ASPIRIN 81 MG PO SCH (20:21)
[2022-05-11] MEDS: SENNOSIDES-DOCUSATE SODIUM 1 EACH TAB PO SCH ×2 (00:01→19:42)
[2022-05-11] MEDS: HYDROcodone/APAP 5-325MG 1 EACH TAB PO PRN ×4 (00:06→18:32)
[2022-05-11] MEDS: LACTATED RINGERS 1,000 ML IV SCH ×5 (00:13→12:31)
[2022-05-11] MEDS: LEVOTHYROXINE 25 MCG TAB PO SCH (06:35)
[2022-05-11] MEDS: CHOLECALCIFEROL 25 MCG (1000 IU) TABLET PO SCH (07:58)
[2022-05-11] MEDS: ASPIRIN 81 MG PO SCH ×2 (07:58→19:43)
[2022-05-11] MEDS: SERTRALINE 100 MG TAB PO SCH (07:59)
[2022-05-11] MEDS: azaTHIOprine 50 MG TAB PO SCH (07:59)
[2022-05-11] MEDS: LORATADINE 10 MG TAB PO SCH (07:59)
[2022-05-11] MEDS: TOPIRAMATE 25 MG TAB PO SCH (08:00)
[2022-05-11] MEDS: SYMBICORT 160-4.5 MCG INHALER INHALATION SCH ×2 (08:16→20:24)
[2022-05-11] MEDS: ALBUTEROL HFA INHALER INHALATION PRN ×2 (08:17→12:19)
--- NOTE | 2022-05-11 08:49 | P.PN ---
Subjective Progress Note Date: 05/11/22 This is a 71-year-old female who is status-post operative fixation of left intertrochanteric hip fracture with short intramedullary hip screw on 05/10/22. Today is post-operative day #1. Patient is examined with Dr. Hernandez. She is complaining of moderate pain in the left hip. She has not yet been up with physical therapy. She has no new complaints today. Vital signs stable. Objective - Vital Signs Vital signs: Vital Signs Temp 98.9 F 05/11/22 07:07 Pulse 86 05/11/22 07:07 Resp 18 05/11/22 07:07 BP 106/61 05/11/22 07:07 Pulse Ox 97 05/11/22 08:18 FiO2 21 05/10/22 19:39 Intake & Output 05/10/22 05/11/22 05/11/22 18:59 06:59 18:59 Intake Total 900 Output Total 335 Balance 565 Intake: IV 900 Output: Urine 260 Estimated Blood Loss 75 Other: # Voids 425 - Exam On examination, patient is sitting up in bed in no apparent distress. She is alert and oriented 3. On inspection of the left hip, there is a clean, dry, intact surgical dressing in place. No bleeding or drainage to the dressing. There is mild ecchymosis. No swelling of the thigh, the thigh is soft and compressible. Motor and sensory function is intact to the left lower extremity. Left lower extremity is warm and perfused with brisk capillary refill distally. - Labs CBC & Chem 7: 05/10/22 11:26 05/10/22 17:37 Labs: Abnormal Lab Results - Last 24 Hours (Table) 05/10/22 05/10/22 05/10/22 Range/Units 04:58 04:58 11:26 RBC 3.03 L 2.61 L (4.10-5.20) X 10*6/uL Hgb 10.5 L 9.2 L D (12.0-15.0) g/dL Hct 31.8 L 26.8 L (37.2-46.3) % MCV 105.0 H 102.7 H (80.0-97.0) fL MCH 34.7 H 35.2 H (27.0-32.0) pg Neutrophils # 9.8 H (1.3-7.7) k/uL Lymphocytes # 0.3 L (1.0-4.8) k/uL Eosinophils # 0.01 L (0.04-0.35) X 10*3/uL Sodium (137-145) mmol/L Anion Gap 9.10 L (10.00-18.00) mmol/L BUN 30.1 H (9.0-27.0) mg/dL Creatinine 1.6 H (0.6-1.5) mg/dL Est GFR (CKD-EPI)AfAm 37.2 L (60.0-200.0) Est GFR (CKD-EPI)NonAf 32.1 L (60.0-200.0) Glucose 148 H (70-110) mg/dL Calcium (8.4-10.2) mg/dL Urine Appearance (Clear) Urine Protein (Negative) Urine Blood (Negative) Ur Leukocyte Esterase (Negative) Urine RBC (0-5) /hpf Urine WBC (0-5) /hpf Ur Squamous Epith Cells (0-4) /hpf Urine Bacteria (None) /hpf Urine Mucus (None) /hpf U Random Total Protein (<12) mg/dL 05/10/22 05/10/22 05/10/22 Range/Units 14:20 14:20 17:37 RBC (4.10-5.20) X 10*6/uL Hgb (12.0-15.0) g/dL Hct (37.2-46.3) % MCV (80.0-97.0) fL MCH (27.0-32.0) pg Neutrophils # (1.3-7.7) k/uL Lymphocytes # (1.0-4.8) k/uL Eosinophils # (0.04-0.35) X 10*3/uL Sodium 133 L (137-145) mmol/L Anion Gap (10.00-18.00) mmol/L BUN 33 H (9.0-27.0) mg/dL Creatinine 1.78 H (0.6-1.5) mg/dL Est GFR (CKD-EPI)AfAm (60.0-200.0) Est GFR (CKD-EPI)NonAf (60.0-200.0) Glucose 127 H (70-110) mg/dL Calcium 8.0 L (8.4-10.2) mg/dL Urine Appearance Cloudy H (Clear) Urine Protein 1+ H (Negative) Urine Blood Large H (Negative) Ur Leukocyte Esterase Large H (Negative) Urine RBC >182 H (0-5) /hpf Urine WBC 22 H (0-5) /hpf Ur Squamous Epith Cells 20 H (0-4) /hpf Urine Bacteria Rare H (None) /hpf Urine Mucus Rare H (None) /hpf U Random Total Protein 63 H (<12) mg/dL Assessment and Plan Assessment: Status-post operative fixation of left intertrochanteric hip fracture with short intramedullary hip screw on 05/10/22. Post-operative day #1. Plan: - Toe-touch weight bearing operative extremity a walker. Up with assistance. - Physical therapy for gait and balance training. - Keep operative dressing in place. Do not remove. Patient may shower over dressing. - Pain medication as needed. - 2 doses post-operative IV antibiotics. - Aspirin 81 mg BID for DVT prophylaxis. - Internal medicine for rajesh-operative medical management. - Case management consulted for discharge planning. Patient may need discharge to rehab facility.
[2022-05-11 09:16] LABS: African American GFR (CKD) 32.3 (60.0-200.0); Anion Gap 9.8 mmol/L (10.00-18.00); BUN/Creat Ratio 19.61 Ratio (12.00-20.00); Blood Urea Nitrogen 35.3 mg/dL (9.0-27.0); Calcium 8.3 mg/dL (8.7-10.3); Carbon Dioxide 22.2 mmol/L (20.0-27.5); Magnesium 1.8 mg/dL (1.5-2.4); Non-African American GFR(CKD) 27.8 (60.0-200.0); Potassium 4.5 mmol/L (3.5-5.5)
--- NOTE | 2022-05-11 10:18 | US ---
EXAMINATION TYPE: US arterial LE single level DATE OF EXAM: 05/09/2022 2:38 PM CLINICAL HISTORY: ankle brachial index. cold, purple feet. History of: Smoker: current vaper Hypertension: no Diabetic: no Hyperlipidemia: No Doppler Waveforms: Right: Multiphasic, except at DP, which is monophasic. Left: Multiphasic, except at DP, which is monophasic. Right Brachial Pressure: 141 Left Brachial Pressure: 153 Ankle-Brachial Indices: Right: 0.98 Left: 0.96 Toe Brachial Indices: Right: 0.55 Left: 0.59 IMPRESSION: 1. Low normal MITCH indices with multiphasic waveforms proximally 2. Abnormal bilateral symmetric TBI indices suggestive of mild to moderate atherosclerotic plaque
--- NOTE | 2022-05-11 10:34 | P.PN ---
Subjective Progress Note Date: 05/11/22 Patient was seen postoperatively, doing well with no complaints, working well with PT. Having some issues with increasing cr and low urine output. Gen: awake, alert HEENT: normocephalic, atraumatic, good hearing acuity, moist mucous membranes Resp: good air exchange, breathing comfortably with no accessory muscle use CVS: good distal perfusion x 4, GI: soft, NTTP, ND : no SPT, no CVAT, herrera catheter not present MSK: no pitting edema, no clubbing Neuro: non-focal, moving all extremities Psych: cooperative, euthymic mood Hospital course: 71-year-old woman with medical history of COPD, Crohn's disease with previous colovesicular fistula requiring surgical repair, bipolar disorder, benzodiazepine dependence, severe protein calorie malnutrition who presented after mechanical fall resulting in left hip fracture. Orthopedic surgery consult to medical team for preoperative clearance as well as medical management. In the emergency room, patient was afebrile, 141/93, heart rate 76, 97% on room air. CBC is remarkable for an MCV of 102.5 but normal hemoglobin of 13.6, thrombocytopenia to 119. Chemistries show chloride of 110, carbon dioxide of 19, no anion gap, BUN is 23, creatinine is 0.73. Liver function tests are unremarkable. Coags are unremarkable. Chest x-ray shows hyperinflation with left hemidiaphragmatic paralysis, flattening of the right hemidiaphragm, otherwise clear parenchyma. Hip/pelvis x-ray shows comminuted left proximal femur fracture with varus deformity. Orthopedic surgery service admit the patient and requested medical consultation. Assessment: Preoperative clearance Acute kidney injury Acute blood loss anemia, expected complication of surgery Abdominal pulsatile mass Severe protein calorie malnutrition COPD without exacerbation Benzodiazepine dependence Bipolar disorder History of Crohn's disease Plan: Vital signs reviewed , patient is afebrile, 106/61, heart rate 86, 97% on room air. BMP shows sodium of 133, BUN of 35.3, creatinine of 1.8, up from 0.7 Magnesium is 1.8 UA from yesterday shows large blood, large leukocyte esterase, greater than 182 red blood cells, 22 white blood cells, 20 squamous cells, rare bacteria Urine protein is 63, sodium is 92, creatinine is 74.6; FENa is 1.7% consistent with intrinsic renal disease Nephrology was consulted Ankle-brachial indexes show low normal MITCH indices with multiphasic waveforms proximately suggestive of mild to moderate atherosclerotic plaque CBC, basic metabolic panel, magnesium ordered for tomorrow Renal ultrasound did not demonstrate hydronephrosis Lactated Ringer's continued at 100 mL per hour Continue ferrous sulfate 325 mg daily Continue 1 mg by mouth Ativan 3 times a day for patient's benzodiazepine dependence Strict intake/uptake, continue Herrera catheter Patient is DO NOT RESUSCITATE/DO NOT INTUBATE Objective - Vital Signs Vital signs: Vital Signs Temp 98.9 F 05/11/22 07:07 Pulse 86 05/11/22 07:07 Resp 18 05/11/22 07:07 BP 106/61 05/11/22 07:07 Pulse Ox 97 05/11/22 08:18 FiO2 21 05/10/22 19:39 Intake & Output 05/10/22 05/11/22 05/11/22 18:59 06:59 18:59 Intake Total 900 Output Total 335 Balance 565 Intake: IV 900 Output: Urine 260 Estimated Blood Loss 75 Other: Voiding Method Indwelling Catheter # Voids 425 - Labs CBC & Chem 7: 05/10/22 11:26 05/11/22 04:57 Labs: Abnormal Lab Results - Last 24 Hours (Table) 05/10/22 05/10/22 05/10/22 Range/Units 11:26 14:20 14:20 RBC 2.61 L (3.80-5.40) m/uL Hgb 9.2 L D (11.4-16.0) gm/dL Hct 26.8 L (34.0-46.0) % MCV 102.7 H (80.0-100.0) fL MCH 35.2 H (25.0-35.0) pg Neutrophils # 9.8 H (1.3-7.7) k/uL Lymphocytes # 0.3 L (1.0-4.8) k/uL Sodium (137-145) mmol/L Anion Gap (10.00-18.00) mmol/L BUN (7-17) mg/dL Creatinine (0.52-1.04) mg/dL Est GFR (CKD-EPI)AfAm (60.0-200.0) Est GFR (CKD-EPI)NonAf (60.0-200.0) Glucose (74-99) mg/dL Calcium (8.4-10.2) mg/dL Urine Appearance Cloudy H (Clear) Urine Protein 1+ H (Negative) Urine Blood Large H (Negative) Ur Leukocyte Esterase Large H (Negative) Urine RBC >182 H (0-5) /hpf Urine WBC 22 H (0-5) /hpf Ur Squamous Epith Cells 20 H (0-4) /hpf Urine Bacteria Rare H (None) /hpf Urine Mucus Rare H (None) /hpf U Random Total Protein 63 H (<12) mg/dL 05/10/22 05/11/22 Range/Units 17:37 04:57 RBC (3.80-5.40) m/uL Hgb (11.4-16.0) gm/dL Hct (34.0-46.0) % MCV (80.0-100.0) fL MCH (25.0-35.0) pg Neutrophils # (1.3-7.7) k/uL Lymphocytes # (1.0-4.8) k/uL Sodium 133 L 133 L (137-145) mmol/L Anion Gap 9.80 L (10.00-18.00) mmol/L BUN 33 H 35.3 H (7-17) mg/dL Creatinine 1.78 H 1.8 H (0.52-1.04) mg/dL Est GFR (CKD-EPI)AfAm 32.3 L (60.0-200.0) Est GFR (CKD-EPI)NonAf 27.8 L (60.0-200.0) Glucose 127 H (74-99) mg/dL Calcium 8.0 L 8.3 L (8.4-10.2) mg/dL Urine Appearance (Clear) Urine Protein (Negative) Urine Blood (Negative) Ur Leukocyte Esterase (Negative) Urine RBC (0-5) /hpf Urine WBC (0-5) /hpf Ur Squamous Epith Cells (0-4) /hpf Urine Bacteria (None) /hpf Urine Mucus (None) /hpf U Random Total Protein (<12) mg/dL
[2022-05-11 10:52] LABS: Basophils # (A) 0.03 X 10*3/uL (0.00-0.10); Basophils % (A) 0.3 %; Eosinophils # (A) 0 X 10*3/uL (0.04-0.35); Eosinophils % (A) 0 %; Immature Grans, Automated 0.4 %; Lymphocytes # (A) 1.26 X 10*3/uL (0.90-5.00); Lymphocytes % (A) 12.4 %; Monocytes # (A) 1.15 X 10*3/uL (0.20-1.00); Monocytes % (A) 11.4 %; NRBC Per 100 WBC 0 /100 WBCS (0.0-0.0); Neutrophils # (A) 7.65 X 10*3/uL (1.80-7.70); Neutrophils % (A) 75.5 %
[2022-05-11 11:19] LABS: HCT 19.4 % (37.2-46.3); HGB 6.5 g/dL (12.0-15.0); MCH 35.1 pg (27.0-32.0); MCHC 33.5 g/dL (32.0-37.0); MCV 104.9 fL (80.0-97.0); Mean Platelet Volume 11.5 fL (9.5-12.2); Platelet Count 121 X 10*3/uL (140-440); RBC 1.85 X 10*6/uL (4.10-5.20); RDW 14.6 % (11.5-14.5); WBC 10.13 X 10*3/uL (4.50-10.00)
[2022-05-11 12:05] VITALS: BMI 14.2
[2022-05-11] MEDS: FERROUS SULFATE 325 MG TAB PO SCH (12:14)
--- NOTE | 2022-05-11 12:20 | P.NPCON ---
History of Present Illness - Reason for Consult acute renal failure - History of Present Illness Patient is a 71-year-old female with history of COPD, Crohn's disease and previous cold of his ankle fistula requiring surgical repair. Patient also has significant protein calorie malnutrition. She was admitted to the hospital with history of fall and left hip fracture. Patient is status post short intramedullary hip screw on 05/10/2022 for left intertrochanteric hip fracture Serum creatinine was 0.7 on initial admission and increased to about 1.7 yesterday and today it is 1.8. Urine output had been low but has picked up now. Started on IV fluids yesterday. Blood pressure had been on the lower side with systolic in the 90s yesterday. No nephrotoxic agents noted Review of Systems As per HPI Past Medical History Past Medical History: COPD, Hypertension Additional Past Medical History / Comment(s): crohns, History of Any Multi-Drug Resistant Organisms: None Reported Past Surgical History: Bowel Resection Additional Past Surgical History / Comment(s): x2, eye surgery Past Anesthesia/Blood Transfusion Reactions: No Reported Reaction Past Psychological History: Bipolar Smoking Status: Vaper Past Alcohol Use History: None Reported Past Drug Use History: None Reported Medications and Allergies Home Medications Medication Instructions Recorded Confirmed Type Albuterol Inhaler [Ventolin Hfa 2 puff INHALATION RT-Q6H PRN 05/09/22 05/09/22 History Inhaler] Cetirizine HCl 10 mg PO DAILY 05/09/22 05/09/22 History Cholecalciferol [Vitamin D3 (25 50 mcg PO DAILY 05/09/22 05/09/22 History Mcg = 1000 Iu)] Cholestyramine (with Sugar) 1 tsp PO BID 05/09/22 05/09/22 History [Cholestyramine Powder] Cyclobenzaprine [Flexeril] 5 mg PO BID PRN 05/09/22 05/09/22 History Dicyclomine [Bentyl] 10 mg PO BID PRN 05/09/22 05/09/22 History Ibuprofen [Motrin] 600 mg PO Q8HR PRN 05/09/22 05/09/22 History LORazepam [Ativan] 1 mg PO TID 05/09/22 05/09/22 History Lactose-Reduced Food [Ensure Plus] 2 can PO BID 05/09/22 05/09/22 History Levothyroxine Sodium [Synthroid] 25 mcg PO DAILY 05/09/22 05/09/22 History Loperamide [Imodium] 4 mg PO TID PRN 05/09/22 05/09/22 History Mometasone/Formoterol [Dulera 200 1 puff INHALATION RT-BID 05/09/22 05/09/22 History Mcg-5 Mcg Inhaler] Sertraline [Zoloft] 200 mg PO DAILY 05/09/22 05/09/22 History Topiramate 50 mg PO DAILY 05/09/22 05/09/22 History azaTHIOprine [Imuran] 50 mg PO DAILY 05/09/22 05/09/22 History metroNIDAZOLE 1% GEL [Metrogel 1%] 1 applic TOPICAL DAILY PRN 05/09/22 05/09/22 History HYDROcodone/APAP 5-325MG [Dufur 1 tab PO Q6HR PRN 7 Days #28 tab 05/11/22 Rx 5-325] Allergies Allergy/AdvReac Type Severity Reaction Status Date / Time Iodinated Contrast Media Allergy Rash/Hives Verified 05/09/22 14:13 Physical Exam Vitals: Vital Signs Temp Pulse Resp BP Pulse Ox FiO2 05/11/22 08:18 97 05/11/22 07:07 98.9 F 86 18 106/61 97 05/11/22 02:00 98.9 F 88 16 112/62 99 05/10/22 20:00 98.8 F 92 18 127/72 95 05/10/22 19:39 95 21 05/10/22 12:30 98 98/57 05/10/22 12:15 43 L 106/68 Intake and Output 05/10/22 05/11/22 05/11/22 22:59 06:59 14:59 Output Total 130 Balance -130 Output: Urine 130 Other: Voiding Method Indwelling Catheter # Voids 425 Weight 37.648 kg Patient is awake, comfortable, no acute distress Cachectic Examination of the heart S1 and S2 Examination lungs bilateral breath sounds are heard Abdomen is soft nontender Examination of lower extremities shows no significant edema OTOLARYNGOLOGY PHYSICIAN exam grossly intact Results - Lab Results Most recent lab results Calcium 8.3 mg/dL (8.7-10.3) L 05/11/22 04:57 Magnesium 1.8 mg/dL (1.5-2.4) 05/11/22 04:57 05/11/22 04:57 05/11/22 04:57 Assessment and Plan Assessment: 1. Acute kidney injury, most likely ATN associated with hypotension and an element of hypovolemia. Currently maintained on IV fluids with improved urine output as per nursing staff. Patient has an indwelling Zamarripa catheter. UA showed 1+ protein and large blood. WBCs 20 to. This was of Zamarripa specimen. Ultrasound shows no evidence of hydronephrosis. Right kidney is slightly smaller. 2. Status post left hip intramedullary screw on 05/10/2022 for left hip intertrochanteric fracture 3. History of Crohn's disease maintained on Imuran 4. History of bipolar disorder 5. Severe protein calorie malnutrition 6. Severe anemia, postop with hemoglobin at 6.5 g/dL, status post packed RBCs Plan: Continue with IV fluids Repeat labs in a.m. Check iron profile Agree with packed RBCs transfusion. Thank you for the consultation. We will continue to follow the patient with you during her hospitalization
[2022-05-11 13:41] LABS: MCH 35.8 pg (25.0-35.0); MCHC 34.6 g/dL (31.0-37.0); MCV 103.5 fL (80.0-100.0); Macrocytosis Slight; Mean Platelet Volume 9.6; Platelet Count 114 k/uL (150-450); RBC 1.88 m/uL (3.80-5.40); RDW 14.6 % (11.5-15.5); WBC 6.5 k/uL (3.8-10.6)
[2022-05-11 13:45] LABS: HCT 19.4 % (34.0-46.0); HGB 6.7 gm/dL (11.4-16.0)
[2022-05-12] MEDS: HYDROcodone/APAP 5-325MG 1 EACH TAB PO PRN ×4 (00:18→19:39)
[2022-05-12] MEDS: LACTATED RINGERS 1,000 ML IV SCH ×4 (00:21→22:10)
[2022-05-12] MEDS: LORazepam 1 MG TAB PO PRN ×2 (02:34→16:26)
[2022-05-12] MEDS: LEVOTHYROXINE 25 MCG TAB PO SCH (05:19)
[2022-05-12] MEDS: SERTRALINE 100 MG TAB PO SCH (08:20)
[2022-05-12] MEDS: LORATADINE 10 MG TAB PO SCH (08:21)
[2022-05-12] MEDS: ASPIRIN 81 MG PO SCH ×2 (08:21→19:34)
[2022-05-12] MEDS: CHOLECALCIFEROL 25 MCG (1000 IU) TABLET PO SCH (08:21)
[2022-05-12] MEDS: TOPIRAMATE 25 MG TAB PO SCH (08:22)
[2022-05-12] MEDS: azaTHIOprine 50 MG TAB PO SCH (08:22)
[2022-05-12] MEDS: SYMBICORT 160-4.5 MCG INHALER INHALATION SCH ×2 (09:26→20:41)
[2022-05-12] MEDS: ALBUTEROL HFA INHALER INHALATION PRN ×3 (09:26→20:43)
[2022-05-12 09:28] LABS: HGB 6.8 g/dL (12.0-15.0); MCH 34.7 pg (27.0-32.0); MCHC 32.4 g/dL (32.0-37.0); MCV 107.1 fL (80.0-97.0); Mean Platelet Volume 11.5 fL (9.5-12.2); NRBC Per 100 WBC 0 /100 WBCS (0.0-0.0); Platelet Count 122 X 10*3/uL (140-440); RBC 1.96 X 10*6/uL (4.10-5.20); RDW 14.9 % (11.5-14.5); WBC 8.77 X 10*3/uL (4.50-10.00)
[2022-05-12 09:29] LABS: African American GFR (CKD) 58.5 (60.0-200.0); Anion Gap 6.6 mmol/L (10.00-18.00); BUN/Creat Ratio 29.27 Ratio (12.00-20.00); Blood Urea Nitrogen 32.2 mg/dL (9.0-27.0); Calcium 8.4 mg/dL (8.7-10.3); Carbon Dioxide 24.4 mmol/L (20.0-27.5); Magnesium 2.1 mg/dL (1.5-2.4); Non-African American GFR(CKD) 50.5 (60.0-200.0); Potassium 4.1 mmol/L (3.5-5.5)
[2022-05-12 09:53] LABS: Basophils # (A) 0.01 X 10*3/uL (0.00-0.10); Basophils % (A) 0.1 %; Eosinophils # (A) 0 X 10*3/uL (0.04-0.35); Eosinophils % (A) 0 %; Immature Grans, Automated 0.5 %; Lymphocytes # (A) 1.08 X 10*3/uL (0.90-5.00); Lymphocytes % (A) 12.3 %; Monocytes # (A) 0.81 X 10*3/uL (0.20-1.00); Monocytes % (A) 9.2 %; Neutrophils # (A) 6.83 X 10*3/uL (1.80-7.70); Neutrophils % (A) 77.9 %
[2022-05-12 09:54] LABS: Rouleaux PRESENT
--- NOTE | 2022-05-12 10:21 | P.PN ---
Subjective Progress Note Date: 05/12/22 This is a 71-year-old female who is status-post operative fixation of left intertrochanteric hip fracture with short intramedullary hip screw on 05/10/22. Today is post-operative day #2. Patient is examined bedside this morning. Hemoglobin resulted as 6.5 yesterday morning and 1 unit of PRBCs was ordered per internal medicine, although patient refused. Repeat hemoglobin is 6.7 this morning. Per nursing, patient is agreeable to receive a unit today. Nephrology was consulted yesterday due to MERCEDES. Patient is currently up to the bedside chair. She states her pain is well controlled in her left hip. Patient states overall she feels well today. Zamarripa catheter is still in place. No additional complaints at this time. Vital signs stable. Objective - Vital Signs Vital signs: Vital Signs Temp 98.1 F 05/12/22 06:58 Pulse 73 05/12/22 06:58 Resp 18 05/12/22 01:40 BP 140/72 05/12/22 06:58 Pulse Ox 91 L 05/12/22 06:58 FiO2 21 05/10/22 19:39 Intake & Output 05/11/22 05/12/22 05/12/22 18:59 06:59 18:59 Intake Total 1900 Output Total 700 650 Balance 1200 -650 Weight 37.648 kg Intake: Intake, IV Titration 1000 Amount Lactated Ringers 1,000 ml 1000 @ 20 mls/hr IV .Q[facility]H [facility] Rx#:[id number] Oral 900 Output: Urine 700 650 Uretheral (Zamarripa) 350 Other: Voiding Method Indwelling Catheter Indwelling Catheter - Exam On examination, patient is sitting up in the bedside chair in no apparent distress. She is alert and oriented 3. On inspection of the left hip, there is a clean, dry, intact surgical dressing in place. No bleeding or drainage to the dressing. There is mild ecchymosis. No swelling of the thigh, the thigh is soft and compressible. Motor and sensory function is intact to the left lower extremity. Left lower extremity is warm and perfused with brisk capillary refill distally. - Labs CBC & Chem 7: 05/12/22 04:44 05/12/22 04:44 Labs: Abnormal Lab Results - Last 24 Hours (Table) 05/11/22 05/11/22 05/11/22 Range/Units 04:57 12:43 13:14 WBC 10.13 H (4.50-10.00) X 10*3/uL RBC 1.85 L 1.88 L (4.10-5.20) X 10*6/uL Hgb 6.5 L* 6.7 L* D (12.0-15.0) g/dL Hct 19.4 L* 19.4 L* (37.2-46.3) % MCV 104.9 H 103.5 H (80.0-97.0) fL MCH 35.1 H 35.8 H (27.0-32.0) pg RDW 14.6 H (11.5-14.5) % Plt Count 121 L 114 L (140-440) X 10*3/uL Plt Count Comment DECREASED A Monocytes # 1.15 H (0.20-1.00) X 10*3/uL Eosinophils # 0 L (0.04-0.35) X 10*3/uL Anion Gap (10.00-18.00) mmol/L BUN (9.0-27.0) mg/dL Est GFR (CKD-EPI)AfAm (60.0-200.0) Est GFR (CKD-EPI)NonAf (60.0-200.0) BUN/Creatinine Ratio (12.00-20.00) Ratio Glucose (70-110) mg/dL Calcium (8.7-10.3) mg/dL Crossmatch See Detail 05/12/22 05/12/22 Range/Units 04:44 04:44 WBC (4.50-10.00) X 10*3/uL RBC 1.96 L (4.10-5.20) X 10*6/uL Hgb 6.8 L* (12.0-15.0) g/dL Hct 21.0 L (37.2-46.3) % MCV 107.1 H (80.0-97.0) fL MCH 34.7 H (27.0-32.0) pg RDW 14.9 H (11.5-14.5) % Plt Count 122 L (140-440) X 10*3/uL Plt Count Comment DECREASED A Monocytes # (0.20-1.00) X 10*3/uL Eosinophils # 0 L (0.04-0.35) X 10*3/uL Anion Gap 6.60 L (10.00-18.00) mmol/L BUN 32.2 H (9.0-27.0) mg/dL Est GFR (CKD-EPI)AfAm 58.5 L (60.0-200.0) Est GFR (CKD-EPI)NonAf 50.5 L (60.0-200.0) BUN/Creatinine Ratio 29.27 H (12.00-20.00) Ratio Glucose 116 H (70-110) mg/dL Calcium 8.4 L (8.7-10.3) mg/dL Crossmatch Assessment and Plan Assessment: Status-post operative fixation of left intertrochanteric hip fracture with short intramedullary hip screw on 05/10/22. Post-operative day #2. Plan: - Toe-touch weight bearing operative extremity a walker. Up with assistance. - Physical therapy for gait and balance training. - Keep operative dressing in place. Do not remove. Patient may shower over dressing. - Pain medication as needed. - Aspirin 81 mg BID for DVT prophylaxis. - Internal medicine for rajesh-operative medical management. 1 unit of PRBCs ordered. - Case management consulted for discharge planning. Anticipate discharge to rehab within next 1-2 days.
--- NOTE | 2022-05-12 11:06 | P.PN ---
Subjective Progress Note Date: 05/12/22 Patient refused her packed red blood cells yesterday. Patient was counseled extensively on importance of packed red blood cells about a kidney injury as well as recent postoperative blood loss, she is now amenable to receiving blood product. Gen: awake, alert HEENT: normocephalic, atraumatic, good hearing acuity, moist mucous membranes Resp: good air exchange, breathing comfortably with no accessory muscle use CVS: good distal perfusion x 4, GI: soft, NTTP, ND : no SPT, no CVAT, herrera catheter not present MSK: no pitting edema, no clubbing Neuro: non-focal, moving all extremities Psych: cooperative, euthymic mood Hospital course: 71-year-old woman with medical history of COPD, Crohn's disease with previous colovesicular fistula requiring surgical repair, bipolar disorder, benzodiazepine dependence, severe protein calorie malnutrition who presented after mechanical fall resulting in left hip fracture. Orthopedic surgery consult to medical team for preoperative clearance as well as medical management. In the emergency room, patient was afebrile, 141/93, heart rate 76, 97% on room air. CBC is remarkable for an MCV of 102.5 but normal hemoglobin of 13.6, thrombocytopenia to 119. Chemistries show chloride of 110, carbon dioxide of 19, no anion gap, BUN is 23, creatinine is 0.73. Liver function tests are unremarkable. Coags are unremarkable. Chest x-ray shows hyperinflation with left hemidiaphragmatic paralysis, flattening of the right hemidiaphragm, otherwise clear parenchyma. Hip/pelvis x-ray shows comminuted left proximal femur fracture with varus deformity. Orthopedic surgery service admit the patient and requested medical consultation. Assessment: Preoperative clearance Acute kidney injury Acute blood loss anemia, expected complication of surgery Abdominal pulsatile mass Severe protein calorie malnutrition COPD without exacerbation Benzodiazepine dependence Bipolar disorder History of Crohn's disease Plan: Vital signs reviewed , patient is afebrile, 99/62, heart rate 83, 91% on room air CBC shows hemoglobin of 6.8, hematocrit 21, platelets of 122. BMP shows sodium of 135, potassium of 4.1, creatinine improved to 1.1 Magnesium is 2.1 Nephrology note reviewed, they agreed with packed red blood cell transfusion, ongoing IV fluids CBC, basic metabolic panel, magnesium ordered for tomorrow Lactated Ringer's continued at 100 mL per hour Continue ferrous sulfate 325 mg daily Ordered 1 unit of packed red blood cells to be transfused today, this is a high- risk med that requires monitoring for toxicity Continue 1 mg by mouth Ativan 3 times a day for patient's benzodiazepine dependence Strict intake/outtake, continue Herrera catheter Patient is DO NOT RESUSCITATE/DO NOT INTUBATE Objective - Vital Signs Vital signs: Vital Signs Temp 98.5 F 05/12/22 10:50 Pulse 83 05/12/22 10:50 Resp 16 05/12/22 10:50 BP 99/62 05/12/22 10:50 Pulse Ox 91 L 05/12/22 06:58 FiO2 21 05/10/22 19:39 Intake & Output 05/11/22 05/12/22 05/12/22 18:59 06:59 18:59 Intake Total 1900 0 Output Total 700 650 Balance 1200 -650 0 Weight 37.648 kg Intake: Intake, IV Titration 1000 Amount Lactated Ringers 1,000 ml 1000 @ 20 mls/hr IV .Q24H [facility] Rx#:[id number] Oral 900 Blood Product 0 Rc Pheresis 2 As3 Unit 0 [id number] Output: Urine 700 650 Uretheral (Herrera) 350 Other: Voiding Method Indwelling Catheter Indwelling Catheter - Labs CBC & Chem 7: 05/12/22 04:44 05/12/22 04:44 Labs: Abnormal Lab Results - Last 24 Hours (Table) 05/11/22 05/11/22 05/11/22 Range/Units 04:57 12:43 13:14 WBC 10.13 H (4.50-10.00) X 10*3/uL RBC 1.85 L 1.88 L (4.10-5.20) X 10*6/uL Hgb 6.5 L* 6.7 L* D (12.0-15.0) g/dL Hct 19.4 L* 19.4 L* (37.2-46.3) % MCV 104.9 H 103.5 H (80.0-97.0) fL MCH 35.1 H 35.8 H (27.0-32.0) pg RDW 14.6 H (11.5-14.5) % Plt Count 121 L 114 L (140-440) X 10*3/uL Plt Count Comment DECREASED A Monocytes # 1.15 H (0.20-1.00) X 10*3/uL Eosinophils # 0 L (0.04-0.35) X 10*3/uL Anion Gap (10.00-18.00) mmol/L BUN (9.0-27.0) mg/dL Est GFR (CKD-EPI)AfAm (60.0-200.0) Est GFR (CKD-EPI)NonAf (60.0-200.0) BUN/Creatinine Ratio (12.00-20.00) Ratio Glucose (70-110) mg/dL Calcium (8.7-10.3) mg/dL Crossmatch See Detail 05/12/22 05/12/22 Range/Units 04:44 04:44 WBC (4.50-10.00) X 10*3/uL RBC 1.96 L (4.10-5.20) X 10*6/uL Hgb 6.8 L* (12.0-15.0) g/dL Hct 21.0 L (37.2-46.3) % MCV 107.1 H (80.0-97.0) fL MCH 34.7 H (27.0-32.0) pg RDW 14.9 H (11.5-14.5) % Plt Count 122 L (140-440) X 10*3/uL Plt Count Comment DECREASED A Monocytes # (0.20-1.00) X 10*3/uL Eosinophils # 0 L (0.04-0.35) X 10*3/uL Anion Gap 6.60 L (10.00-18.00) mmol/L BUN 32.2 H (9.0-27.0) mg/dL Est GFR (CKD-EPI)AfAm 58.5 L (60.0-200.0) Est GFR (CKD-EPI)NonAf 50.5 L (60.0-200.0) BUN/Creatinine Ratio 29.27 H (12.00-20.00) Ratio Glucose 116 H (70-110) mg/dL Calcium 8.4 L (8.7-10.3) mg/dL Crossmatch
[2022-05-12] MEDS: FERROUS SULFATE 325 MG TAB PO SCH (11:49)
--- NOTE | 2022-05-12 11:50 | P.PN ---
Subjective Patient is seen for follow-up for acute kidney injury mostly prerenal currently improved with IV fluids. Serum creatinine improved to 1.1. Hemoglobin was down again at 6.8 g/dL. Patient is being transfused another unit of packed RBCs. No active bleeding noted Good urine output, documented at 1.3 L for 24 hours. Objective - Vital Signs Vital signs: Vital Signs Temp 98.9 F 05/12/22 11:20 Pulse 78 05/12/22 11:20 Resp 16 05/12/22 10:50 BP 97/58 05/12/22 11:20 Pulse Ox 91 L 05/12/22 06:58 FiO2 21 05/10/22 19:39 Intake & Output 05/11/22 05/12/22 05/12/22 18:59 06:59 18:59 Intake Total 1900 0 Output Total 700 650 Balance 1200 -650 0 Weight 37.648 kg Intake: Intake, IV Titration 1000 Amount Lactated Ringers 1,000 ml 1000 @ 20 mls/hr IV .Q24H [facility] Rx#:[id number] Oral 900 Blood Product 0 Rc Pheresis 2 As3 Unit 0 [id number] Output: Urine 700 650 Uretheral (Zamarripa) 350 Other: Voiding Method Indwelling Catheter Indwelling Catheter - Exam Patient is awake, comfortable, no acute distress Cachectic Abdomen is soft nontender Examination of lower extremities shows no significant edema HEEL SCORER exam grossly intact - Labs CBC & Chem 7: 05/12/22 04:44 05/12/22 04:44 Labs: Abnormal Lab Results - Last 24 Hours (Table) 05/11/22 05/11/22 05/12/22 Range/Units 12:43 13:14 04:44 RBC 1.88 L (3.80-5.40) m/uL Hgb 6.7 L* D (11.4-16.0) gm/dL Hct 19.4 L* (34.0-46.0) % MCV 103.5 H (80.0-100.0) fL MCH 35.8 H (25.0-35.0) pg RDW (11.5-14.5) % Plt Count 114 L (150-450) k/uL Plt Count Comment Eosinophils # (0.04-0.35) X 10*3/uL Anion Gap 6.60 L (10.00-18.00) mmol/L BUN 32.2 H (9.0-27.0) mg/dL Est GFR (CKD-EPI)AfAm 58.5 L (60.0-200.0) Est GFR (CKD-EPI)NonAf 50.5 L (60.0-200.0) BUN/Creatinine Ratio 29.27 H (12.00-20.00) Ratio Glucose 116 H (70-110) mg/dL Calcium 8.4 L (8.7-10.3) mg/dL Crossmatch See Detail 05/12/22 Range/Units 04:44 RBC 1.96 L (3.80-5.40) m/uL Hgb 6.8 L* (11.4-16.0) gm/dL Hct 21.0 L (34.0-46.0) % MCV 107.1 H (80.0-100.0) fL MCH 34.7 H (25.0-35.0) pg RDW 14.9 H (11.5-14.5) % Plt Count 122 L (150-450) k/uL Plt Count Comment DECREASED A Eosinophils # 0 L (0.04-0.35) X 10*3/uL Anion Gap (10.00-18.00) mmol/L BUN (9.0-27.0) mg/dL Est GFR (CKD-EPI)AfAm (60.0-200.0) Est GFR (CKD-EPI)NonAf (60.0-200.0) BUN/Creatinine Ratio (12.00-20.00) Ratio Glucose (70-110) mg/dL Calcium (8.7-10.3) mg/dL Crossmatch Assessment and Plan Assessment: 1. Acute kidney injury, most likely ATN associated with hypotension and an element of hypovolemia. Currently maintained on IV fluids with improved renal function. Patient has an indwelling Zamarripa catheter. UA showed 1+ protein and large blood. WBCs 20 to. This was of Zamarripa specimen. Ultrasound shows no evidence of hydronephrosis. Right kidney is slightly smaller. 2. Status post left hip intramedullary screw on 05/10/2022 for left hip intertrochanteric fracture 3. History of Crohn's disease maintained on Imuran 4. History of bipolar disorder 5. Severe protein calorie malnutrition 6. Severe anemia, postop with hemoglobin at 6.8 g/dL, status post packed RBCs Plan: Continue with IV fluids Repeat labs in a.m. Agree with packed RBCs transfusion.
[2022-05-12] MEDS: SENNOSIDES-DOCUSATE SODIUM 1 EACH TAB PO SCH ×2 (19:34→19:36)
[2022-05-13] MEDS: LEVOTHYROXINE 25 MCG TAB PO SCH (05:29)
[2022-05-13] MEDS: HYDROcodone/APAP 5-325MG 1 EACH TAB PO PRN (06:51)
[2022-05-13 07:34] VITALS: RESP 18
[2022-05-13] MEDS: SYMBICORT 160-4.5 MCG INHALER INHALATION SCH (07:51)
[2022-05-13] MEDS: SERTRALINE 100 MG TAB PO SCH (09:04)
[2022-05-13] MEDS: CHOLECALCIFEROL 25 MCG (1000 IU) TABLET PO SCH (09:05)
[2022-05-13] MEDS: ASPIRIN 81 MG PO SCH (09:05)
[2022-05-13] MEDS: azaTHIOprine 50 MG TAB PO SCH (09:05)
[2022-05-13] MEDS: LORATADINE 10 MG TAB PO SCH (09:05)
[2022-05-13] MEDS: TOPIRAMATE 25 MG TAB PO SCH (09:05)
[2022-05-13] MEDS: LORazepam 1 MG TAB PO PRN (09:07)
--- NOTE | 2022-05-13 09:10 | P.DS ---
Providers Date of admission: 05/09/22 12:42 Expected date of discharge: 05/13/22 Attending physician: Brian Hernandez Consults: 05/09/22 12:42 Consult Physician Urgent Consulting Provider: Elinor Rooney Consult Reason/Comments: medical Management, surgical clearance Do you want consulting provider notified?: Already Contacted 05/10/22 19:10 Consult Physician Routine Consulting Provider: Aristeo Coppola Consult Reason/Comments: jany Do you want consulting provider notified?: Yes Primary care physician: [facility] Course: This patient is an 71-year-old female who sustained a ground-level fall on 05/09/22. X-rays in the emergency department revealed a left intertrochanteric hip fracture. Patient was admitted under the care on Dr. Hernandez for surgical intervention with a consult placed an internal medicine for preoperative medical clearance. Patient underwent operative fixation of left intertrochanteric hip fracture with short intramedullary hip screw and 05/10/22. The procedure was performed without complication or sequelae. Vital signs and labs are stable on postoperative day #3. Patient is examined bedside this morning. She is up to the bedside chair. She states the pain in her left hip is well controlled at this time. Patient has worked with physical therapy. Patient is tolerating her diet. Zamarripa catheter was removed yesterday and patient states she is voiding without issue. She denies chest pain, shortness of breath, nausea, vomiting. No new complaints the day of discharge. On examination, patient is sitting up in the bedside chair in no apparent distress. She is alert and oriented 3. On inspection of the left hip, there is a clean, dry, intact surgical dressing in place. No bleeding or drainage through the dressing. Mild ecchymosis. Motor and sensory function is intact of the left lower extremity. Left lower extremity warm and well perfused. Calf is nontender. Patient is discharged to rehab today, pending medical clearance. Please see med rec for accurate list of discharge medications. Patient Condition at Discharge: Fair Plan - Discharge Summary Discharge Rx Participant: No New Discharge Prescriptions: New HYDROcodone/APAP 5-325MG [Tyler 5-325] 1 tab PO Q6HR PRN 7 Days #28 tab PRN Reason: Pain Aspirin 81 mg PO BID 30 Days #60 tab Docusate [Colace] 100 mg PO BID #60 capsule No Action Topiramate 50 mg PO DAILY Mometasone/Formoterol [Dulera 200 Mcg-5 Mcg Inhaler] 1 puff INHALATION RT-BID Levothyroxine Sodium [Synthroid] 25 mcg PO DAILY Cyclobenzaprine [Flexeril] 5 mg PO BID PRN PRN Reason: Muscle Pain Cetirizine HCl 10 mg PO DAILY Sertraline [Zoloft] 200 mg PO DAILY Lactose-Reduced Food [Ensure Plus] 2 can PO BID metroNIDAZOLE 1% GEL [Metrogel 1%] 1 applic TOPICAL DAILY PRN PRN Reason: SKIN ISSUES LORazepam [Ativan] 1 mg PO TID Loperamide [Imodium] 4 mg PO TID PRN PRN Reason: IBS Ibuprofen [Motrin] 600 mg PO Q8HR PRN PRN Reason: Pain Or Fever > 100.5 Dicyclomine [Bentyl] 10 mg PO BID PRN PRN Reason: Gi Upset Cholestyramine (with Sugar) [Cholestyramine Powder] 1 tsp PO BID Cholecalciferol [Vitamin D3 (25 Mcg = 1000 Iu)] 50 mcg PO DAILY azaTHIOprine [Imuran] 50 mg PO DAILY Albuterol Inhaler [Ventolin Hfa Inhaler] 2 puff INHALATION RT-Q6H PRN PRN Reason: Shortness Of Breath Discharge Medication List Albuterol Inhaler [Ventolin Hfa Inhaler] 2 puff INHALATION RT-Q6H PRN 05/09/22 [History] Cetirizine HCl 10 mg PO DAILY 05/09/22 [History] Cholecalciferol [Vitamin D3 (25 Mcg = 1000 Iu)] 50 mcg PO DAILY 05/09/22 [History] Cholestyramine (with Sugar) [Cholestyramine Powder] 1 tsp PO BID 05/09/22 [History] Cyclobenzaprine [Flexeril] 5 mg PO BID PRN 05/09/22 [History] Dicyclomine [Bentyl] 10 mg PO BID PRN 05/09/22 [History] Ibuprofen [Motrin] 600 mg PO Q8HR PRN 05/09/22 [History] LORazepam [Ativan] 1 mg PO TID 05/09/22 [History] Lactose-Reduced Food [Ensure Plus] 2 can PO BID 05/09/22 [History] Levothyroxine Sodium [Synthroid] 25 mcg PO DAILY 05/09/22 [History] Loperamide [Imodium] 4 mg PO TID PRN 05/09/22 [History] Mometasone/Formoterol [Dulera 200 Mcg-5 Mcg Inhaler] 1 puff INHALATION RT-BID 05/09/22 [History] Sertraline [Zoloft] 200 mg PO DAILY 05/09/22 [History] Topiramate 50 mg PO DAILY 05/09/22 [History] azaTHIOprine [Imuran] 50 mg PO DAILY 05/09/22 [History] metroNIDAZOLE 1% GEL [Metrogel 1%] 1 applic TOPICAL DAILY PRN 05/09/22 [History] HYDROcodone/APAP 5-325MG [Tyler 5-325] 1 tab PO Q6HR PRN 7 Days #28 tab 05/11/22 [Rx] Aspirin 81 mg PO BID 30 Days #60 tab 05/13/22 [Rx] Docusate [Colace] 100 mg PO BID #60 capsule 05/13/22 [Rx] Follow up Appointment(s)/Referral(s): Kailash Mcdaniel DO [STAFF PHYSICIAN] - 1 Week Brian Hernandez MD [Medical Doctor] - 05/21/22 1:45 pm [facility]Clinic [Primary Care Provider] - 1-2 days Activity/Diet/Wound Care/Special Instructions: Toe-touch weight bearing operative extremity. Up with assistance, up with a walker. Keep operative dressings in place until follow-up in the office. May shower over dressing. Pain medications as needed. Take aspirin 81mg BID x 4 weeks for blood clot prevention. Follow-up in the office in two weeks at [facility]. Call the office with any questions or concerns, Discharge Disposition: TRANSFER TO SNF/ECF
--- NOTE | 2022-05-13 09:31 | P.PN ---
Subjective Progress Note Date: 05/13/22 Patient has no complaints today. Working well with PT/OT. Rec'd PRBCs yesterday, Cr improved, UOP improved. Stable for discharge medically. Gen: awake, alert HEENT: normocephalic, atraumatic, good hearing acuity, moist mucous membranes Resp: good air exchange, breathing comfortably with no accessory muscle use CVS: good distal perfusion x 4, GI: soft, NTTP, ND : no SPT, no CVAT, herrera catheter not present MSK: no pitting edema, no clubbing Neuro: non-focal, moving all extremities Psych: cooperative, euthymic mood Hospital course: 71-year-old woman with medical history of COPD, Crohn's disease with previous colovesicular fistula requiring surgical repair, bipolar disorder, benzodiazepine dependence, severe protein calorie malnutrition who presented after mechanical fall resulting in left hip fracture. Orthopedic surgery consult to medical team for preoperative clearance as well as medical management. In the emergency room, patient was afebrile, 141/93, heart rate 76, 97% on room air. CBC is remarkable for an MCV of 102.5 but normal hemoglobin of 13.6, thrombocytopenia to 119. Chemistries show chloride of 110, carbon dioxide of 19, no anion gap, BUN is 23, creatinine is 0.73. Liver function tests are unremarkable. Coags are unremarkable. Chest x-ray shows hyperinflation with left hemidiaphragmatic paralysis, flattening of the right hemidiaphragm, otherwise clear parenchyma. Hip/pelvis x-ray shows comminuted left proximal femur fracture with varus deformity. Orthopedic surgery service admit the patient and requested medical consultation. Assessment: Preoperative clearance Acute kidney injury Acute blood loss anemia, expected complication of surgery Abdominal pulsatile mass Severe protein calorie malnutrition COPD without exacerbation Benzodiazepine dependence Bipolar disorder History of Crohn's disease Plan: Vital signs reviewed , patient is afebrile, 109/68, HR 80, 94% RA Case discussed with orthopedic surgery, patient is stable medically for discharge. Prescribed ferrous sulfate 325 mg daily Continue 1 mg by mouth Ativan 3 times a day for patient's benzodiazepine depend ence Strict intake/outtake, continue Herrera catheter Patient is DO NOT RESUSCITATE/DO NOT INTUBATE Objective - Vital Signs Vital signs: Vital Signs Temp 98.0 F 05/13/22 07:05 Pulse 80 05/13/22 07:05 Resp 18 05/13/22 07:05 BP 109/68 05/13/22 07:05 Pulse Ox 94 L 05/13/22 07:05 FiO2 21 05/12/22 20:43 Intake & Output 05/12/22 05/13/22 05/13/22 18:59 06:59 18:59 Intake Total 1366 Output Total 600 Balance 766 Intake: Oral 1080 Blood Product 286 Rc Pheresis 2 As3 Unit 286 [id number] Output: Urine 600 Other: Voiding Method Indwelling Catheter # Voids 4 # Bowel Movements 1 - Labs CBC & Chem 7: 05/12/22 04:44 05/12/22 04:44 Labs: Abnormal Lab Results - Last 24 Hours (Table) 05/11/22 05/12/22 05/12/22 Range/Units 12:43 04:44 04:44 RBC 1.96 L (4.10-5.20) X 10*6/uL Hgb 6.8 L* (12.0-15.0) g/dL Hct 21.0 L (37.2-46.3) % MCV 107.1 H (80.0-97.0) fL MCH 34.7 H (27.0-32.0) pg RDW 14.9 H (11.5-14.5) % Plt Count 122 L (140-440) X 10*3/uL Plt Count Comment DECREASED A Eosinophils # 0 L (0.04-0.35) X 10*3/uL Anion Gap 6.60 L (10.00-18.00) mmol/L BUN 32.2 H (9.0-27.0) mg/dL Est GFR (CKD-EPI)AfAm 58.5 L (60.0-200.0) Est GFR (CKD-EPI)NonAf 50.5 L (60.0-200.0) BUN/Creatinine Ratio 29.27 H (12.00-20.00) Ratio Glucose 116 H (70-110) mg/dL Calcium 8.4 L (8.7-10.3) mg/dL Crossmatch See Detail
[2022-05-13 11:21] LABS: Anisocytosis Slight; Basophils % (A) 0 %; Eosinophils % (A) 0 %; HCT 25.9 % (34.0-46.0); Lymphocytes # (A) 0.4 k/uL (1.0-4.8); Lymphocytes % (A) 6 %; MCH 34.3 pg (25.0-35.0); Macrocytosis Slight; Monocytes # (A) 0.4 k/uL (0-1.0); Monocytes % (A) 5 %; Neutrophils # (A) 6.6 k/uL (1.3-7.7); Neutrophils % (A) 87 %; Platelet Count 110 k/uL (150-450); Poikilocytosis Slight; RBC 2.64 m/uL (3.80-5.40); WBC 7.6 k/uL (3.8-10.6)
[2022-05-13 11:24] LABS: HGB 9.1 gm/dL (11.4-16.0)
[2022-05-13 11:25] LABS: MCV 98.1 fL (80.0-100.0)
[2022-05-13] MEDS: FERROUS SULFATE 325 MG TAB PO SCH (11:53)
[2022-05-13 13:39] VITALS: BP 108/76; PULSE 85; TEMP 98.2
--- NOTE | 2022-05-13 16:21 | P.PN ---
Subjective Patient is seen for follow-up for acute kidney injury mostly prerenal currently improved with IV fluids. Serum creatinine improved to 1.1. Hemoglobin was down again at 6.8 g/dL. Patient was transfused another unit of packed RBCs. No active bleeding noted Good urine output, herrera catheter discontinued. Objective - Vital Signs Vital signs: Vital Signs Temp 98.2 F 05/13/22 13:39 Pulse 85 05/13/22 13:39 Resp 18 05/13/22 13:39 BP 108/76 05/13/22 13:39 Pulse Ox 96 05/13/22 13:39 FiO2 21 05/12/22 20:43 Intake & Output 05/12/22 05/13/22 05/13/22 18:59 06:59 18:59 Intake Total 1366 Output Total 600 2 Balance 766 -2 Intake: Oral 1080 Blood Product 286 Rc Pheresis 2 As3 Unit 286 [id number] Output: Urine 600 Stool 2 Other: Voiding Method Indwelling Catheter Bedside Commode # Voids 4 1 # Bowel Movements 1 - Exam Patient is awake, comfortable, no acute distress Cachectic Lungs are clear CVS S1 and S2 Abdomen is soft nontender Examination of lower extremities shows no significant edema BUILDING CONTRACTOR exam grossly intact - Labs CBC & Chem 7: 05/13/22 10:01 05/12/22 04:44 Labs: Abnormal Lab Results - Last 24 Hours (Table) 05/13/22 Range/Units 10:01 RBC 2.64 L (3.80-5.40) m/uL Hgb 9.1 L D (11.4-16.0) gm/dL Hct 25.9 L (34.0-46.0) % RDW 18.0 H (11.5-15.5) % Plt Count 110 L (150-450) k/uL Lymphocytes # 0.4 L (1.0-4.8) k/uL Assessment and Plan Assessment: 1. Acute kidney injury, most likely ATN associated with hypotension and an element of hypovolemia. Currently maintained on IVF with improvement in renal function. UA showed 1+ protein and large blood. WBCs 20. This was of Herrera specimen. Ultrasound shows no evidence of hydronephrosis. Right kidney is slightly smaller. 2. Status post left hip intramedullary screw on 05/10/2022 for left hip intertrochanteric fracture 3. History of Crohn's disease maintained on Imuran 4. History of bipolar disorder 5. Severe protein calorie malnutrition 6. Severe anemia, postop with hemoglobin at 6.8 g/dL, status post packed RBCs Plan: Continue to encourage increased oral intake. Repeat labs in a.m.
--- NOTE | 2022-05-14 12:24 | CDI ---
Documentation Clarification Form Date: 05/14/2022 12:10:41 PM From: Vi Morris Admit Date: 05/09/2022 12:42:00 PM Patient Name: Hilaria Cristina Visit Number: [id number] Discharge Date: 05/13/2022 4:41:00 PM ATTENTION: The Clinical Documentation Specialists (CDI) and [facility] Coding Staff appreciate your assistance in clarifying documentation. Please respond to the clarification below the line at the bottom and electronically sign. The CDI & [facility] Coding staff will review the response and follow-up if needed. Please note: Queries are made part of the Legal Health Record. If you have any questions, please contact the author of this message via ITS. Dr. Brian Hernandez Patient was diagnosed with a left intertrochanteric hip fracture. Additional clarification regarding the etiology of the left intertrochanteric fracture is requested. Patient history/risk factors: 71 year old female presented with left hip pain following a fall at home after slipping on ice while shoveling snow. Has a hx of COPD, HTN, Crohns Disease, Bipolar and hx of smoking with current vaper. Operative Report also mentions patient has osteoporosis. Clinical indicators: Left intertrochanteric hip fracture, osteoporosis, status post a fall at home, slipped on ice while shoveling snow. Radiology report(s): comminuted left proximal femur fracture with Varus deformity, mild degeneration with osteophyte formation of the hips. Treatment: operative fixation of left intertrochanteric hip fracture with short intramedullary hip screw. Please clarify the etiology of the fracture, if known: [ ] Traumatic [ ] Pathological/ due to Osteoporosis [ ] Other (please specify): [ ] Unable to Determine Please see op report for addendum with information requested. VANE LANDAVERDE
== END 2022-05-13 16:41 | DRG 480 ==
LOC: SUPCPDRO 11:35 → EC 11:35 → 4SSUR 12:42
PROVIDERS: ADMIT Orthopaedic Surgery; ATTEND Orthopaedic Surgery
PROC: 0QS706Z Reposition Left Upper Femur with Intramedullary Internal Fixation Device, Open Approach (ICD-10-PCS; principal; 2022-05-10 08:00)
PROC: 30233N1 Transfusion of Nonautologous Red Blood Cells into Peripheral Vein, Percutaneous Approach (ICD-10-PCS; 2022-05-12)
DX: S72.142A Displaced intertrochanteric fracture of left femur, initial encounter for closed fracture (principal); E43 Unspecified severe protein-calorie malnutrition; N17.0 Acute kidney failure with tubular necrosis; K50.90 Crohn's disease, unspecified, without complications; Z68.1 Body mass index [BMI] 19.9 or less, adult; D62 Acute posthemorrhagic anemia; F13.20 Sedative, hypnotic or anxiolytic dependence, uncomplicated; R64 Cachexia; M80.052A Age-related osteoporosis with current pathological fracture, left femur, initial encounter for fracture; W00.0XXA Fall on same level due to ice and snow, initial encounter; Y93.H1 Activity, digging, shoveling and raking; Y92.014 Private driveway to single-family (private) house as the place of occurrence of the external cause; M21.152 Varus deformity, not elsewhere classified, left hip; J44.9 Chronic obstructive pulmonary disease, unspecified; I10 Essential (primary) hypertension; F31.9 Bipolar disorder, unspecified; I95.9 Hypotension, unspecified; E86.1 Hypovolemia; F17.290 Nicotine dependence, other tobacco product, uncomplicated; F41.9 Anxiety disorder, unspecified; Z66 Do not resuscitate; I73.9 Peripheral vascular disease, unspecified; R19.00 Intra-abdominal and pelvic swelling, mass and lump, unspecified site; Z53.29 Procedure and treatment not carried out because of patient's decision for other reasons; J98.6 Disorders of diaphragm; D69.6 Thrombocytopenia, unspecified; Z28.310 Unvaccinated for COVID-19; Z91.041 Radiographic dye allergy status; Z79.899 Other long term (current) drug therapy; Z79.890 Hormone replacement therapy; Z79.624 Long term (current) use of inhibitors of nucleotide synthesis; Z79.51 Long term (current) use of inhaled steroids
CPT/HCPCS: 36415; 51702; 71045; 73502; 76770; 80048; 80053; 81001; 82570; 83735; 84156; 84300; 85025; 85027; 85610; 85730; 86850; 86900; 86901; 86920; 93005; 93922; 93979; 94640; 94760; 96374; 96375; 99284

== ENCOUNTER 2022-05-23 06:12 | Inpatient (IN) | payer OTHER, MEDICARE ==
[2022-05-23] MEDS ORDERED: SODIUM CHLORIDE 0.9% 500 ML 500 ML IV ONE (06:28)
[2022-05-23 06:30] LABS: Glucose,Whole Blood 115 mg/dL (70-110)
--- NOTE | 2022-05-23 06:38 | ED ---
General Adult HPI - General Chief complaint: Chest Pain Stated complaint: Chest Pain Time Seen by Provider: 05/23/22 06:15 Source: patient, EMS, RN notes reviewed, old records reviewed Mode of arrival: EMS Limitations: altered mental status - History of Present Illness Initial comments: This is a 71-year-old female that presents to the emergency room via EMS from [facility]. Per EMS staff were called for patient's complaints of chest pain approximately an hour before their arrival. Upon arrival to the emergency room patient is confused and not answering questions appropriately. Repeating every question asked. Talking about jew, restraints and other nonsense words. Patient recently discharged on May 13 after a left hip frac ture on May 09. She has a known history of COPD, Crohn's disease, hypertension, malnutrition and bipolar. Patient is a DO NOT RESUSCITATE. -: hour(s) (2) Location: chest Severity scale (1-10): 0 Consistency: now resolved Associated Symptoms: denies other symptoms - Related Data Home Medications Medication Instructions Recorded Confirmed Albuterol Inhaler [Ventolin Hfa 2 puff INHALATION RT-Q6H PRN 05/09/22 05/23/22 Inhaler] Cetirizine HCl 10 mg PO DAILY 05/09/22 05/23/22 Cholecalciferol [Vitamin D3 (25 50 mcg PO DAILY 05/09/22 05/23/22 Mcg = 1000 Iu)] Cholestyramine (with Sugar) 4 gm PO BID 05/09/22 05/23/22 [Cholestyramine Powder] Cyclobenzaprine [Flexeril] 5 mg PO BID PRN 05/09/22 05/23/22 Dicyclomine [Bentyl] 10 mg PO BID PRN 05/09/22 05/23/22 LORazepam [Ativan] 1 mg PO TID@0900,1300,2100 05/09/22 05/23/22 Lactose-Reduced Food [Ensure Plus] 1 can PO BID@0900,1700 05/09/22 05/23/22 Levothyroxine Sodium [Synthroid] 25 mcg PO DAILY 05/09/22 05/23/22 Mometasone/Formoterol [Dulera 200 2 puff INHALATION RT-BID 05/09/22 05/23/22 Mcg-5 Mcg Inhaler] Sertraline [Zoloft] 200 mg PO DAILY 05/09/22 05/23/22 Topiramate 50 mg PO DAILY 05/09/22 05/23/22 azaTHIOprine [Imuran] 50 mg PO DAILY 05/09/22 05/23/22 metroNIDAZOLE 1% GEL [Metrogel 1%] 1 applic TOPICAL DAILY PRN 05/09/22 05/23/22 Ferrous Sulfate [Iron (65 MG 325 mg PO DAILY 05/23/22 05/23/22 Elemental)] HYDROcodone/APAP 5-325MG [[place] 1 tab PO Q6H PRN 05/23/22 05/23/22 5-325] Previous Rx's Medication Instructions Recorded Acetaminophen Tab [Tylenol] 650 mg PO Q6HR PRN tab 05/13/22 Aspirin 81 mg PO BID 30 Days #60 tab 05/13/22 Docusate [Colace] 100 mg PO BID #60 capsule 05/13/22 Allergies Allergy/AdvReac Type Severity Reaction Status Date / Time Iodinated Contrast Media Allergy Rash/Hives Verified 05/23/22 11:48 Patient : No Review of Systems ROS Statement: Those systems with pertinent positive or pertinent negative responses have been documented in the HPI. ROS Other: All systems not noted in ROS Statement are negative. Past Medical History Past Medical History: COPD, Hypertension Additional Past Medical History / Comment(s): crohns, History of Any Multi-Drug Resistant Organisms: None Reported Past Surgical History: Bowel Resection Additional Past Surgical History / Comment(s): x2, eye surgery Past Anesthesia/Blood Transfusion Reactions: No Reported Reaction Past Psychological History: Bipolar Smoking Status: Vaper Past Alcohol Use History: None Reported Past Drug Use History: None Reported General Exam Limitations: altered mental status General appearance: alert, in no apparent distress Head exam: Present: atraumatic, normocephalic Eye exam: Absent: scleral icterus, conjunctival injection, periorbital swelling Neck exam: Absent: tenderness, meningismus Respiratory exam: Present: normal lung sounds bilaterally. Absent: respiratory distress, accessory muscle use Cardiovascular Exam: Present: tachycardia GI/Abdominal exam: Present: soft. Absent: distended Left Hip exam: Present: ecchymosis Upper Leg exam: Present: ecchymosis Knee exam: Present: full knee extension Lower Leg exam: Present: ecchymosis Ankle exam: Present: ecchymosis Foot/Toe exam: Present: ecchymosis Neurovascular tendon exam: Present: no vascular compromise. Absent: abnormal cap refill, extremity cold to touch, pallor Back exam: Absent: tenderness, CVA tenderness (R), CVA tenderness (L), rash noted Neurological exam: Present: alert, altered Expanded Patient oriented to: Present: person Eye Response: (4) open spontaneously Motor Response: (6) obeys commands Verbal Response: (3) inappropriate words [place] Total: 13 Psychiatric exam: Present: anxious Skin exam: Present: warm, dry, normal color, other (Ecchymosis noted to left hip and distally status post hip surgery 2 weeks ago). Absent: cyanosis, diaphoretic, pallor Course Vital Signs 05/23/22 05/23/22 05/23/22 06:14 06:39 14:19 Temperature 97.7 F 101.1 F H 97.4 F L Pulse Rate 107 H 96 Respiratory 20 18 Rate Blood Pressure 119/86 122/92 O2 Sat by Pulse 96 98 Oximetry - Reevaluation(s) Reevaluation #1: 05/23/22 07:36 Patient's sister at bedside states that patient's altered mental status has been ongoing since discharge from the hospital to [facility] on the . Patient did request yesterday during a period of lucidity that she wants to be put on pall iative care or hospice. The staff at [facility] also told the patient's sister there has been outbreak of Covid at the facility and she has not been receiving any physical therapy since discharge. Time: 07:36 Reevaluation #2: 05/23/22 09:13 Spoke with Brenda from hospice who states patient should be admitted to medicine with them on consult. Time: 09:13 EKG Findings - EKG Results: EKG: not changed from: (05/11/22) EKG shows: tachycardia (EKG shows sinus tachycardia with ventricular rate of 112, NM interval 0.107, QRS 0.68, QTc 0.360, normal axis) Medical Decision Making - Medical Decision Making EKG shows sinus tachycardia with ventricular rate of 112, NM interval 0.107, QRS 0.68, QTc 0.360, normal axis, compared to old 05/11/22 Chest x-ray interpreted by me shows no focal consolidation. Radiologist impression small posterior right pleural effusion Patient was given IV fluids and Tylenol for fever. No evidence of leukocytosis. Urinalysis positive for UTI. Patient was given Rocephin. Patient also positive for coronavirus. Patient's sister at bedside states has power of contract attorney. States her altered mental status has been ongoing since discharge on the . She states she did have a conversation with the patient yesterday during a moment of lucidity and was requesting palliative or hospice care. Patient is currently a DO NOT RESUSCITATE. Patient will be admitted to the hospital for altered mental status, coronavirus, UTI. Consult to hospice was placed. Patient's sister is agreeable to this plan of care. Case discussed with Dr. Chavez. Was pt. sent in by a medical professional or institution (, PA, RAYON WINDER, urgent care, hospital, or skilled nursing...) When possible be specific @ -[facility] Did you speak to anyone other than the patient for history (EMS, parent, family, police, friend...)? What history was obtained from this source @ -patient's sister Did you review nursing and triage notes (agree or disagree)? Why? @ -I reviewed and agree with nursing and triage notes Were old charts reviewed (outside hosp., previous admission, EMS record, old EKG, old radiological studies, urgent care reports/EKG's, skilled nursing records)? Report findings @ -yes previous EKG Differential Diagnosis (chest pain, altered mental status, abdominal pain women, abdominal pain men, vaginal bleeding, weakness, fever, dyspnea, syncope, headache, dizziness, GI bleed, back pain, seizure, CVA, palpatations, mental health, musculoskeletal)? @ -Differential Altered Mental Status: Hypoglycemia, DKA, hypercapnia, ETOH, overdose, CO poisoning, trauma, myxedema coma, HTN encephalopathy, infection, encephalitis, psychosis, intercranial hemorrhage, hepatic encephalopathy, meningitis, CVA, this is not meant to be an all-inclusive list EKG interpreted by me (3pts min.). @ -As above X-rays interpreted by me (1pt min.). @ -yes as above CT interpreted by me (1pt min.). @ -None done U/S interpreted by me (1pt. min.). @ -None done What testing was considered but not performed or refused? (CT, X-rays, U/S, labs)? Why? @ -None What meds were considered but not given or refused? Why? @ -None Did you discuss the management of the patient with other professionals (professionals i.e. , PA, RAYON WINDER, lab, RT, psych nurse, protective services social worker, table tender sludge, teacher, security flex utility officer, case assistant)? Give summary @ -No Was smoking cessation discussed for >3mins.? @ -No Was critical care preformed (if so, how long)? @ -No Were there social determinants of health that impacted care today? How? (Homelessness, low income, unemployed, alcoholism, drug addiction, transportation, low edu. Level, literacy, decrease access to med. care, skilled nursing, rehab)? @ -No Was there de-escalation of care discussed even if they declined (Discuss DNR or withdrawal of care, Hospice)? DNR status @ -We did discuss hospice/ palliative care with patient's sister who states has power of contract attorney and consult was placed as requested What co-morbidities impacted this encounter? (DM, HTN, Smoking, COPD, CAD, Cancer, CVA, ARF, Chemo, Hep., AIDS, mental health diagnosis, sleep apnea, morbid obesity)? @ -COPD, Crohn's, hypertension, bipolar, malnutrition Was patient admitted / discharged? Hospital course, mention meds given and ro hoh, prescriptions, significant lab abnormalities, going to OR and other pertinent info. @ -Admitted Undiagnosed new problem with uncertain prognosis? @ -No Drug Therapy requiring intensive monitoring for toxicity (Heparin, Nitro, Insulin, Cardizem)? @ -No Were any procedures done? @ -No Diagnosis/symptom? @ -Covid, UTI, altered mental status Acute, or Chronic, or Acute on Chronic? @ -Acute Uncomplicated (without systemic symptoms) or Complicated (systemic symptoms)? @ -Complicated Side effects of treatment? @ -No Exacerbation, Progression, or Severe Exacerbation? @ -No Poses a threat to life or bodily function? How? (Chest pain, [place], [place], pneumonia, PE, COPD, DKA, ARF, appy, cholecystitis, CVA, Diverticulitis, Homicidal, Suicidal, threat to staff... and all critical care pts) @ -Yes, patient DNR - Lab Data Result diagrams: 05/23/22 06:54 05/23/22 06:54 Lab Results 0305/23/22 05/23/22 Range/Units 06:28 06:54 06:54 WBC 9.2 (3.8-10.6) k/uL RBC 2.90 L (3.80-5.40) m/uL Hgb 10.3 L (11.4-16.0) gm/dL Hct 30.1 L (34.0-46.0) % MCV 103.6 H (80.0-100.0) fL MCH 35.5 H (25.0-35.0) pg MCHC 34.3 (31.0-37.0) g/dL RDW 18.4 H (11.5-15.5) % Plt Count 157 (150-450) k/uL MPV 8.4 Neutrophils % 92 % Lymphocytes % 4 % Monocytes % 3 % Eosinophils % 1 % Basophils % 0 % Neutrophils # 8.5 H (1.3-7.7) k/uL Lymphocytes # 0.4 L (1.0-4.8) k/uL Monocytes # 0.3 (0-1.0) k/uL Eosinophils # 0.1 (0-0.7) k/uL Basophils # 0.0 (0-0.2) k/uL Poikilocytosis Slight Anisocytosis Slight Macrocytosis Moderate ESR (0-20) mm/hr PT 10.8 (9.0-12.0) sec INR 1.0 (<1.2) APTT 22.5 (22.0-30.0) sec Sodium (137-145) mmol/L Potassium (3.5-5.1) mmol/L Chloride (98-107) mmol/L Carbon Dioxide (22-30) mmol/L Anion Gap mmol/L BUN (7-17) mg/dL Creatinine (0.52-1.04) mg/dL Est GFR (CKD-EPI)AfAm (>60 ml/min/1.73 sqM) Est GFR (CKD-EPI)NonAf (>60 ml/min/1.73 sqM) Glucose (74-99) mg/dL POC Glucose (mg/dL) 115 H (70-110) mg/dL POC Glu Trade Mark Examiner ID Rasta Farr Plasma Lactic Acid Edvin (0.7-2.0) mmol/L Calcium (8.4-10.2) mg/dL Total Bilirubin (0.2-1.3) mg/dL AST (14-36) U/L ALT (4-34) U/L Alkaline Phosphatase (38-126) U/L Troponin I (0.000-0.034) ng/mL C-Reactive Protein (<1.0) mg/dL Total Protein (6.3-8.2) g/dL Albumin (3.5-5.0) g/dL Procalcitonin (0.02-0.09) ng/mL Urine Color Urine Appearance (Clear) Urine pH (5.0-8.0) Ur Specific [place] (1.001-1.035) Urine Protein (Negative) Urine Glucose (UA) (Negative) Urine Ketones (Negative) Urine Blood (Negative) Urine Nitrite (Negative) Urine Bilirubin (Negative) Urine Urobilinogen (<2.0) mg/dL Ur Leukocyte Esterase (Negative) Urine RBC (0-5) /hpf Urine WBC (0-5) /hpf Urine WBC Clumps (None) /hpf Ur Squamous Epith Cells (0-4) /hpf Urine Bacteria (None) /hpf Urine Mucus (None) /hpf Urine Opiates Screen (NotDetected) Ur Oxycodone Screen (NotDetected) Urine Methadone Screen (NotDetected) Ur Propoxyphene Screen (NotDetected) Ur Barbiturates Screen (NotDetected) U Tricyclic Antidepress (NotDetected) Ur Phencyclidine Scrn (NotDetected) Ur Amphetamines Screen (NotDetected) U Methamphetamines Scrn (NotDetected) U Benzodiazepines Scrn (NotDetected) Urine Cocaine Screen (NotDetected) U Marijuana (THC) Screen (NotDetected) Influenza Type A (PCR) (Not Detectd) Influenza Type B (PCR) (Not Detectd) RSV (PCR) (Not Detectd) SARS-CoV-2 (PCR) (Not Detectd) 05/23/22 05/23/22 05/23/22 Range/Units 06:54 06:54 06:54 WBC (3.8-10.6) k/uL RBC (3.80-5.40) m/uL Hgb (11.4-16.0) gm/dL Hct (34.0-46.0) % MCV (80.0-100.0) fL MCH (25.0-35.0) pg MCHC (31.0-37.0) g/dL RDW (11.5-15.5) % Plt Count (150-450) k/uL MPV Neutrophils % % Lymphocytes % % Monocytes % % Eosinophils % % Basophils % % Neutrophils # (1.3-7.7) k/uL Lymphocytes # (1.0-4.8) k/uL Monocytes # (0-1.0) k/uL Eosinophils # (0-0.7) k/uL Basophils # (0-0.2) k/uL Poikilocytosis Anisocytosis Macrocytosis ESR 9 (0-20) mm/hr PT (9.0-12.0) sec INR (<1.2) APTT (22.0-30.0) sec Sodium 139 (137-145) mmol/L Potassium 3.7 (3.5-5.1) mmol/L Chloride 109 H (98-107) mmol/L Carbon Dioxide 22 (22-30) mmol/L Anion Gap 8 mmol/L BUN 25 H (7-17) mg/dL Creatinine 0.69 (0.52-1.04) mg/dL Est GFR (CKD-EPI)AfAm >90 (>60 ml/min/1.73 sqM) Est GFR (CKD-EPI)NonAf 88 (>60 ml/min/1.73 sqM) Glucose 106 H (74-99) mg/dL POC Glucose (mg/dL) (70-110) mg/dL POC Glu Trade Mark Examiner ID Plasma Lactic Acid Edvin (0.7-2.0) mmol/L Calcium 8.5 (8.4-10.2) mg/dL Total Bilirubin 1.0 (0.2-1.3) mg/dL AST 27 (14-36) U/L ALT 20 (4-34) U/L Alkaline Phosphatase 165 H (38-126) U/L Troponin I <0.012 (0.000-0.034) ng/mL C-Reactive Protein (<1.0) mg/dL Total Protein 5.4 L (6.3-8.2) g/dL Albumin 3.1 L (3.5-5.0) g/dL Procalcitonin (0.02-0.09) ng/mL Urine Color Urine Appearance (Clear) Urine pH (5.0-8.0) Ur Specific [place] (1.001-1.035) Urine Protein (Negative) Urine Glucose (UA) (Negative) Urine Ketones (Negative) Urine Blood (Negative) Urine Nitrite (Negative) Urine Bilirubin (Negative) Urine Urobilinogen (<2.0) mg/dL Ur Leukocyte Esterase (Negative) Urine RBC (0-5) /hpf Urine WBC (0-5) /hpf Urine WBC Clumps (None) /hpf Ur Squamous Epith Cells (0-4) /hpf Urine Bacteria (None) /hpf Urine Mucus (None) /hpf Urine Opiates Screen (NotDetected) Ur Oxycodone Screen (NotDetected) Urine Methadone Screen (NotDetected) Ur Propoxyphene Screen (NotDetected) Ur Barbiturates Screen (NotDetected) U Tricyclic Antidepress (NotDetected) Ur Phencyclidine Scrn (NotDetected) Ur Amphetamines Screen (NotDetected) U Methamphetamines Scrn (NotDetected) U Benzodiazepines Scrn (NotDetected) Urine Cocaine Screen (NotDetected) U Marijuana (THC) Screen (NotDetected) Influenza Type A (PCR) (Not Detectd) Influenza Type B (PCR) (Not Detectd) RSV (PCR) (Not Detectd) SARS-CoV-2 (PCR) (Not Detectd) 05/23/22 05/23/22 05/23/22 Range/Units 06:56 06:56 07:43 WBC (3.8-10.6) k/uL RBC (3.80-5.40) m/uL Hgb (11.4-16.0) gm/dL Hct (34.0-46.0) % MCV (80.0-100.0) fL MCH (25.0-35.0) pg MCHC (31.0-37.0) g/dL RDW (11.5-15.5) % Plt Count (150-450) k/uL MPV Neutrophils % % Lymphocytes % % Monocytes % % Eosinophils % % Basophils % % Neutrophils # (1.3-7.7) k/uL Lymphocytes # (1.0-4.8) k/uL Monocytes # (0-1.0) k/uL Eosinophils # (0-0.7) k/uL Basophils # (0-0.2) k/uL Poikilocytosis Anisocytosis Macrocytosis ESR (0-20) mm/hr PT (9.0-12.0) sec INR (<1.2) APTT (22.0-30.0) sec Sodium (137-145) mmol/L Potassium (3.5-5.1) mmol/L Chloride (98-107) mmol/L Carbon Dioxide (22-30) mmol/L Anion Gap mmol/L BUN (7-17) mg/dL Creatinine (0.52-1.04) mg/dL Est GFR (CKD-EPI)AfAm (>60 ml/min/1.73 sqM) Est GFR (CKD-EPI)NonAf (>60 ml/min/1.73 sqM) Glucose (74-99) mg/dL POC Glucose (mg/dL) (70-110) mg/dL POC Glu Trade Mark Examiner ID Plasma Lactic Acid Edvin 1.8 (0.7-2.0) mmol/L Calcium (8.4-10.2) mg/dL Total Bilirubin (0.2-1.3) mg/dL AST (14-36) U/L ALT (4-34) U/L Alkaline Phosphatase (38-126) U/L Troponin I (0.000-0.034) ng/mL C-Reactive Protein (<1.0) mg/dL Total Protein (6.3-8.2) g/dL Albumin (3.5-5.0) g/dL Procalcitonin (0.02-0.09) ng/mL Urine Color Yellow Urine Appearance Cloudy H (Clear) Urine pH 6.5 (5.0-8.0) Ur Specific [place] 1.015 (1.001-1.035) Urine Protein Trace H (Negative) Urine Glucose (UA) Negative (Negative) Urine Ketones Negative (Negative) Urine Blood Moderate H (Negative) Urine Nitrite Positive H (Negative) Urine Bilirubin Negative (Negative) Urine Urobilinogen <2.0 (<2.0) mg/dL Ur Leukocyte Esterase Large H (Negative) Urine RBC 10 H (0-5) /hpf Urine WBC >182 H (0-5) /hpf Urine WBC Clumps Moderate H (None) /hpf Ur Squamous Epith Cells 3 (0-4) /hpf Urine Bacteria Many H (None) /hpf Urine Mucus Rare H (None) /hpf Urine Opiates Screen Detected H (NotDetected) Ur Oxycodone Screen Not Detected (NotDetected) Urine Methadone Screen Not Detected (NotDetected) Ur Propoxyphene Screen Not Detected (NotDetected) Ur Barbiturates Screen Not Detected (NotDetected) U Tricyclic Antidepress Not Detected (NotDetected) Ur Phencyclidine Scrn Not Detected (NotDetected) Ur Amphetamines Screen Not Detected (NotDetected) U Methamphetamines Scrn Not Detected (NotDetected) U Benzodiazepines Scrn Detected H (NotDetected) Urine Cocaine Screen Not Detected (NotDetected) U Marijuana (THC) Screen Not Detected (NotDetected) Influenza Type A (PCR) Not Detected (Not Detectd) Influenza Type B (PCR) Not Detected (Not Detectd) RSV (PCR) Not Detected (Not Detectd) SARS-CoV-2 (PCR) Detected A (Not Detectd) 05/23/22 05/23/22 Range/Units 08:50 08:50 WBC (3.8-10.6) k/uL RBC (3.80-5.40) m/uL Hgb (11.4-16.0) gm/dL Hct (34.0-46.0) % MCV (80.0-100.0) fL MCH (25.0-35.0) pg MCHC (31.0-37.0) g/dL RDW (11.5-15.5) % Plt Count (150-450) k/uL MPV Neutrophils % % Lymphocytes % % Monocytes % % Eosinophils % % Basophils % % Neutrophils # (1.3-7.7) k/uL Lymphocytes # (1.0-4.8) k/uL Monocytes # (0-1.0) k/uL Eosinophils # (0-0.7) k/uL Basophils # (0-0.2) k/uL Poikilocytosis Anisocytosis Macrocytosis ESR (0-20) mm/hr PT (9.0-12.0) sec INR (<1.2) APTT (22.0-30.0) sec Sodium (137-145) mmol/L Potassium (3.5-5.1) mmol/L Chloride (98-107) mmol/L Carbon Dioxide (22-30) mmol/L Anion Gap mmol/L BUN (7-17) mg/dL Creatinine (0.52-1.04) mg/dL Est GFR (CKD-EPI)AfAm (>60 ml/min/1.73 sqM) Est GFR (CKD-EPI)NonAf (>60 ml/min/1.73 sqM) Glucose (74-99) mg/dL POC Glucose (mg/dL) (70-110) mg/dL POC Glu Trade Mark Examiner ID Plasma Lactic Acid Edvin (0.7-2.0) mmol/L Calcium (8.4-10.2) mg/dL Total Bilirubin (0.2-1.3) mg/dL AST (14-36) U/L ALT (4-34) U/L Alkaline Phosphatase (38-126) U/L Troponin I (0.000-0.034) ng/mL C-Reactive Protein 1.0 H (<1.0) mg/dL Total Protein (6.3-8.2) g/dL Albumin (3.5-5.0) g/dL Procalcitonin 0.12 H (0.02-0.09) ng/mL Urine Color Urine Appearance (Clear) Urine pH (5.0-8.0) Ur Specific [place] (1.001-1.035) Urine Protein (Negative) Urine Glucose (UA) (Negative) Urine Ketones (Negative) Urine Blood (Negative) Urine Nitrite (Negative) Urine Bilirubin (Negative) Urine Urobilinogen (<2.0) mg/dL Ur Leukocyte Esterase (Negative) Urine RBC (0-5) /hpf Urine WBC (0-5) /hpf Urine WBC Clumps (None) /hpf Ur Squamous Epith Cells (0-4) /hpf Urine Bacteria (None) /hpf Urine Mucus (None) /hpf Urine Opiates Screen (NotDetected) Ur Oxycodone Screen (NotDetected) Urine Methadone Screen (NotDetected) Ur Propoxyphene Screen (NotDetected) Ur Barbiturates Screen (NotDetected) U Tricyclic Antidepress (NotDetected) Ur Phencyclidine Scrn (NotDetected) Ur Amphetamines Screen (NotDetected) U Methamphetamines Scrn (NotDetected) U Benzodiazepines Scrn (NotDetected) Urine Cocaine Screen (NotDetected) U Marijuana (THC) Screen (NotDetected) Influenza Type A (PCR) (Not Detectd) Influenza Type B (PCR) (Not Detectd) RSV (PCR) (Not Detectd) SARS-CoV-2 (PCR) (Not Detectd) Disposition Clinical Impression: COVID-19, Altered mental status, UTI (urinary tract infection) Disposition: ADMITTED IP TO THIS HOSP Decision Date: 05/23/22 Decision Time: 08:37
[2022-05-23] MEDS ORDERED: ACETAMINOPHEN TAB 325 MG TAB PO STA (06:49)
[2022-05-23 07:22] LABS: Anisocytosis Slight; Basophils % (A) 0 %; Eosinophils # (A) 0.1 k/uL (0-0.7); Eosinophils % (A) 1 %; HCT 30.1 % (34.0-46.0); HGB 10.3 gm/dL (11.4-16.0); Lymphocytes # (A) 0.4 k/uL (1.0-4.8); Lymphocytes % (A) 4 %; MCH 35.5 pg (25.0-35.0); MCHC 34.3 g/dL (31.0-37.0); MCV 103.6 fL (80.0-100.0); Macrocytosis Moderate; Mean Platelet Volume 8.4; Monocytes # (A) 0.3 k/uL (0-1.0); Monocytes % (A) 3 %; Neutrophils # (A) 8.5 k/uL (1.3-7.7); Neutrophils % (A) 92 %; Platelet Count 157 k/uL (150-450); Poikilocytosis Slight; RDW 18.4 % (11.5-15.5); WBC 9.2 k/uL (3.8-10.6)
--- NOTE | 2022-05-23 07:25 | XR ---
EXAMINATION TYPE: XR chest 2V DATE OF EXAM: 05/23/2022 COMPARISON: 05/09/2022 INDICATION: Altered mental status TECHNIQUE: Frontal and lateral views of the chest are obtained. FINDINGS: The heart size is normal. The pulmonary vasculature is normal. No suspicious infiltrate is evident on the frontal projection. There may be a small posterior pleural effusion right lung base on the lateral view. IMPRESSION: 1. Small posterior right pleural effusion.
[2022-05-23 07:32] LABS: Partial Thromboplastin Time 22.5 sec (22.0-30.0); Prothrombin Time 10.8 sec (9.0-12.0)
[2022-05-23 07:44] LABS: ALT 20 U/L (4-34); AST 27 U/L (14-36); African American GFR (CKD) >90 (>60 ml/min/1.73 sqM); Albumin 3.1 g/dL (3.5-5.0); Alkaline Phosphatase 165 U/L (38-126); Anion Gap 8 mmol/L; Blood Urea Nitrogen 25 mg/dL (7-17); Calcium 8.5 mg/dL (8.4-10.2); Carbon Dioxide 22 mmol/L (22-30); Chloride 109 mmol/L (98-107); Glucose 106 mg/dL (74-99); Non-African American GFR(CKD) 88 (>60 ml/min/1.73 sqM); Potassium 3.7 mmol/L (3.5-5.1); Sodium 139 mmol/L (137-145); Total Protein 5.4 g/dL (6.3-8.2)
[2022-05-23] MEDS ORDERED: ACETAMINOPHEN TAB 325 MG TAB PO PRN (08:41)
[2022-05-23] MEDS ORDERED: NALOXONE 0.4 MG/ML 1 ML VIAL IV PRN (08:41)
[2022-05-23 08:57] LABS: Appearance,Urine Cloudy (Clear); Bacteria,Urine Many /hpf; Bilirubin,Urine Negative (Negative); Blood,Urine Moderate (Negative); Color,Urine Yellow; Glucose,Urine (UA) Negative (Negative); Ketones,Urine Negative (Negative); Leukocyte Esterase,Urine Large (Negative); Mucus,Urine Rare /hpf; Nitrite,Urine Positive (Negative); PH, Urine 6.5 (5.0-8.0); Protein,Urine Trace (Negative); RBC,Urine 10 /hpf (0-5); Specific Gravity,Urine 1.015 (1.001-1.035); Squamous Epithelial Cell,Urine 3 /hpf (0-4); Urobilinogen,Urine <2.0 mg/dL (<2.0); WBC,Urine >182 /hpf (0-5)
[2022-05-23 09:21] LABS: Amphetamine Screen,Urine Not Detected (NotDetected); Benzodiazepines Screen,Urine Detected (NotDetected); Cocaine Screen,Urine Not Detected (NotDetected); Methadone Screen, Urine Not Detected (NotDetected); Opiate Screen,Urine Detected (NotDetected); Phencyclidine Screen,Urine Not Detected (NotDetected); Tricyclic Antidepressant,Urine Not Detected (NotDetected); Urn Cannabinoid Scrn Not Detected (NotDetected)
[2022-05-23 09:22] LABS: Barbiturate Screen,Urine Not Detected (NotDetected); Oxycodone Screen, Urine Not Detected (NotDetected)
[2022-05-23] MEDS ORDERED: polyethylene glycoL 3350 17 GM POWD.PACK PO PRN (14:46)
[2022-05-23] MEDS ORDERED: ONDANSETRON 4 MG/2 ML VIAL IVP PRN (14:46)
--- NOTE | 2022-05-23 15:38 | P.HPIM ---
History of Present Illness H&P Date: 05/23/22 Patient is a 71-year-old female with multiple comorbidities, recent left intertrochanteric hip fracture status post surgery presenting from nursing/rehab facility with acute encephalopathy and shortness of breath. Patient is a very poor historian. No family at bedside. In the ED, patient was febrile at 101.1, tachycardic to 107, blood pressure 119/86, saturating well on room air. Laboratory workup significant for hemoglobin of 10.3, platelets 157, potassium 3.7, creatinine 0.69, troponin less than 0.012, CRP at 1.2, urinalysis positive for nitrites, and leukocyte esterase, COVID-19 positive, urine tox positive for opiates and benzos. Chest x-ray showed small posterior right pleural effusion. Family had already began discussion with regards to hospice care all she was at rehab facility. Family does not want to pursue further treatment, wants to continue hospice care. Hospice was consulted in the ED, and would like to admit patient in the hospital for placement purposes as she is COVID-19 positive. Family is not ready to take patient home for hospice. Pertinent positives and negatives as discussed in HPI, a complete review of systems was performed and all other systems are negative. Patient seen and examined at bedside. Vital signs reviewed General: nontoxic, no distress, frail appearing Derm: warm, dry Head: atraumatic, normocephalic, symmetric Eyes: EOMI, no lid lag, anicteric sclera, pupils equal round reactive to light ENT: Nose and ears atraumatic Neck: No thyromegaly, supple Mouth: no lip lesion, mucus membranes moist Cardiovascular: S1S2 reg, no murmur, no edema Lungs: clear to auscultation bilateral, no rhonchi, no rales, no wheeze, no accessory muscle use Abdominal: soft, nontender to palpation, no guarding, no appreciable organom egaly Ext: no gross muscle atrophy, muscle strength muscle strength 4 out of 5 in all 4 extremities, no contractures Neuro: CN II-XII grossly intact Psych: Alert, oriented 0, not following commands Assessment/Plan: Hospice care Acute encephalopathy Acute COVID-19 syndrome Small posterior right pleural effusion Sinus tachycardia Chronic macrocytic anemia -Hospice care has been consulted -Comfort Care measures only -Tylenol 650 mg every 6 hours as needed, and no cold 5 every 4 hours as needed for [id number] pain -Morphine 4 mg IV every 6 hours as needed for breakthrough pain -Bowel regimen with MiraLAX daily, 4 mg IV every 8 hours when necessary for nausea -Ativan 0.5 mg by mouth 3 times a day as needed for anxiety The patient is admitted with an anticipated greater than 2 midnight stay as inpatient status for evaluation of acute encephalopathy. Patient will be discharged to a hospice facility, currently COVID-19 positive, we'll need to find an appropriate facility that will take COVID-19 patients. Surrogate decision-maker: Daughter CODE STATUS: DNR/DNI DVT prophylaxis: N/A Anticipated discharge date: Pending clinical course Anticipated discharge place: Hospice facility A total of 55 minutes was spent on the care of this complex patient more than 50% of the time was spent in counseling and care coordination. Past Medical History Past Medical History: COPD, Hypertension Additional Past Medical History / Comment(s): crohns, History of Any Multi-Drug Resistant Organisms: None Reported Past Surgical History: Bowel Resection Additional Past Surgical History / Comment(s): x2, eye surgery Past Anesthesia/Blood Transfusion Reactions: No Reported Reaction Past Psychological History: Bipolar Smoking Status: Vaper Past Alcohol Use History: None Reported Past Drug Use History: None Reported Medications and Allergies Home Medications Medication Instructions Recorded Confirmed Type Albuterol Inhaler [Ventolin Hfa 2 puff INHALATION RT-Q6H PRN 05/09/22 05/23/22 History Inhaler] Cetirizine HCl 10 mg PO DAILY 05/09/22 05/23/22 History Cholecalciferol [Vitamin D3 (25 50 mcg PO DAILY 05/09/22 05/23/22 History Mcg = 1000 Iu)] Cholestyramine (with Sugar) 4 gm PO BID 05/09/22 05/23/22 History [Cholestyramine Powder] Cyclobenzaprine [Flexeril] 5 mg PO BID PRN 05/09/22 05/23/22 History Dicyclomine [Bentyl] 10 mg PO BID PRN 05/09/22 05/23/22 History LORazepam [Ativan] 1 mg PO TID@0900,1300,2100 05/09/22 05/23/22 History Lactose-Reduced Food [Ensure Plus] 1 can PO BID@0900,1700 05/09/22 05/23/22 History Levothyroxine Sodium [Synthroid] 25 mcg PO DAILY 05/09/22 05/23/22 History Mometasone/Formoterol [Dulera 200 2 puff INHALATION RT-BID 05/09/22 05/23/22 History Mcg-5 Mcg Inhaler] Sertraline [Zoloft] 200 mg PO DAILY 05/09/22 05/23/22 History Topiramate 50 mg PO DAILY 05/09/22 05/23/22 History azaTHIOprine [Imuran] 50 mg PO DAILY 05/09/22 05/23/22 History metroNIDAZOLE 1% GEL [Metrogel 1%] 1 applic TOPICAL DAILY PRN 05/09/22 05/23/22 History Acetaminophen Tab [Tylenol] 650 mg PO Q6HR PRN tab 05/13/22 05/23/22 Rx Aspirin 81 mg PO BID 30 Days #60 tab 05/13/22 05/23/22 Rx Docusate [Colace] 100 mg PO BID #60 capsule 05/13/22 05/23/22 Rx Ferrous Sulfate [Iron (65 MG 325 mg PO DAILY 05/23/22 05/23/22 History Elemental)] HYDROcodone/APAP 5-325MG [[place] 1 tab PO Q6H PRN 05/23/22 05/23/22 History 5-325] Allergies Allergy/AdvReac Type Severity Reaction Status Date / Time Iodinated Contrast Media Allergy Rash/Hives Verified 05/23/22 11:48 Physical Exam Vitals: Vital Signs Temp Pulse Resp BP Pulse Ox 05/23/22 14:19 97.4 F L 96 18 122/92 98 05/23/22 06:39 101.1 F H 05/23/22 06:14 97.7 F 107 H 20 119/86 96 Intake and Output 05/22/22 05/23/22 05/23/22 22:59 06:59 14:59 Other: Weight 58.967 kg Results CBC & Chem 7: 05/23/22 06:54 05/23/22 06:54 Labs: Abnormal Lab Results - Last 24 Hours (Table) 05/23/22 05/23/22 05/23/22 Range/Units 06:28 06:54 06:54 RBC 2.90 L (3.80-5.40) m/uL Hgb 10.3 L (11.4-16.0) gm/dL Hct 30.1 L (34.0-46.0) % MCV 103.6 H (80.0-100.0) fL MCH 35.5 H (25.0-35.0) pg RDW 18.4 H (11.5-15.5) % Neutrophils # 8.5 H (1.3-7.7) k/uL Lymphocytes # 0.4 L (1.0-4.8) k/uL Chloride 109 H (98-107) mmol/L BUN 25 H (7-17) mg/dL Glucose 106 H (74-99) mg/dL POC Glucose (mg/dL) 115 H (70-110) mg/dL Alkaline Phosphatase 165 H (38-126) U/L C-Reactive Protein (<1.0) mg/dL Total Protein 5.4 L (6.3-8.2) g/dL Albumin 3.1 L (3.5-5.0) g/dL Procalcitonin (0.02-0.09) ng/mL Urine Appearance (Clear) Urine Protein (Negative) Urine Blood (Negative) Urine Nitrite (Negative) Ur Leukocyte Esterase (Negative) Urine RBC (0-5) /hpf Urine WBC (0-5) /hpf Urine WBC Clumps (None) /hpf Urine Bacteria (None) /hpf Urine Mucus (None) /hpf Urine Opiates Screen (NotDetected) U Benzodiazepines Scrn (NotDetected) SARS-CoV-2 (PCR) (Not Detectd) 05/23/22 05/23/22 05/23/22 Range/Units 06:56 07:43 08:50 RBC (3.80-5.40) m/uL Hgb (11.4-16.0) gm/dL Hct (34.0-46.0) % MCV (80.0-100.0) fL MCH (25.0-35.0) pg RDW (11.5-15.5) % Neutrophils # (1.3-7.7) k/uL Lymphocytes # (1.0-4.8) k/uL Chloride (98-107) mmol/L BUN (7-17) mg/dL Glucose (74-99) mg/dL POC Glucose (mg/dL) (70-110) mg/dL Alkaline Phosphatase (38-126) U/L C-Reactive Protein 1.0 H (<1.0) mg/dL Total Protein (6.3-8.2) g/dL Albumin (3.5-5.0) g/dL Procalcitonin (0.02-0.09) ng/mL Urine Appearance Cloudy H (Clear) Urine Protein Trace H (Negative) Urine Blood Moderate H (Negative) Urine Nitrite Positive H (Negative) Ur Leukocyte Esterase Large H (Negative) Urine RBC 10 H (0-5) /hpf Urine WBC >182 H (0-5) /hpf Urine WBC Clumps Moderate H (None) /hpf Urine Bacteria Many H (None) /hpf Urine Mucus Rare H (None) /hpf Urine Opiates Screen Detected H (NotDetected) U Benzodiazepines Scrn Detected H (NotDetected) SARS-CoV-2 (PCR) Detected A (Not Detectd) 05/23/22 Range/Units 08:50 RBC (3.80-5.40) m/uL Hgb (11.4-16.0) gm/dL Hct (34.0-46.0) % MCV (80.0-100.0) fL MCH (25.0-35.0) pg RDW (11.5-15.5) % Neutrophils # (1.3-7.7) k/uL Lymphocytes # (1.0-4.8) k/uL Chloride (98-107) mmol/L BUN (7-17) mg/dL Glucose (74-99) mg/dL POC Glucose (mg/dL) (70-110) mg/dL Alkaline Phosphatase (38-126) U/L C-Reactive Protein (<1.0) mg/dL Total Protein (6.3-8.2) g/dL Albumin (3.5-5.0) g/dL Procalcitonin 0.12 H (0.02-0.09) ng/mL Urine Appearance (Clear) Urine Protein (Negative) Urine Blood (Negative) Urine Nitrite (Negative) Ur Leukocyte Esterase (Negative) Urine RBC (0-5) /hpf Urine WBC (0-5) /hpf Urine WBC Clumps (None) /hpf Urine Bacteria (None) /hpf Urine Mucus (None) /hpf Urine Opiates Screen (NotDetected) U Benzodiazepines Scrn (NotDetected) SARS-CoV-2 (PCR) (Not Detectd)
[2022-05-23] MEDS: MORPHINE SULFATE 4 MG/ML SYRINGE IV PRN (18:51)
[2022-05-23] MEDS ORDERED: ACETAMINOPHEN SUPPOSITORY 650 MG SUPP RECTAL PRN (19:32)
[2022-05-24] MEDS: MORPHINE SULFATE 4 MG/ML SYRINGE IV PRN ×3 (01:06→22:58)
[2022-05-24] MEDS: LORazepam 0.5 MG TAB PO PRN ×2 (01:21→08:13)
--- NOTE | 2022-05-24 11:24 | P.PN ---
Subjective Progress Note Date: 05/24/22 Hospital Course: 71-year-old female with multiple comorbidities, recent left intertrochanteric hip fracture status post surgery presenting from nursing/rehab facility with acute encephalopathy and shortness of breath. In the ED, patient was febrile at 101.1, tachycardic to 107, blood pressure 119/86, saturating well on room air. Laboratory workup significant for hemoglobin of 10.3, platelets 157, potassium 3.7, creatinine 0.69, troponin less than 0.012, CRP at 1.2, urinalysis positive for nitrites, and leukocyte esterase, COVID-19 positive, urine tox positive for opiates and benzos. Chest x-ray showed small posterior right pleural effusion. Family had already began discussion with regards to hospice care all she was at rehab facility. Family does not want to pursue further treatment, wants to continue hospice care. Hospice was consulted in the ED, and would like to admit patient in the hospital for placement purposes as she is COVID-19 positive. Family is not ready to take patient home for hospice. Patient to be discharged to a hospice facility once she is out of quarantine. Subjective: Patient seen and examined at bedside. Per nursing, she appears uncomfortable. She needs more anxiety and pain medications. Pertinent positives and negatives as discussed above, a complete review of systems was performed and all other systems are negative. Vitals Signs Reviewed. General: nontoxic, frail appearing, appears uncomfortable Derm: warm, dry Head: atraumatic, normocephalic, symmetric Eyes: EOMI, no lid lag, anicteric sclera, pupils equal round reactive to light ENT: Nose and ears atraumatic Neck: No thyromegaly, supple Mouth: no lip lesion, mucus membranes moist Cardiovascular: S1S2 reg, no murmur, no edema Lungs: clear to auscultation bilateral, no rhonchi, no rales, no wheeze, no accessory muscle use Abdominal: soft, nontender to palpation, no guarding, no appreciable organomegaly Ext: no gross muscle atrophy, muscle strength muscle strength 4 out of 5 in all 4 extremities, no contractures Neuro: CN II-XII grossly intact Psych: Alert, oriented 0, not following commands Data Reviewed Today: Vital signs reviewed, patient currently hypertensive 162/79, tachycardic 106 and, febrile at 102.2 Assessment and Plan: Hospice care/comfort care measures Acute metabolic encephalopathy Acute COVID-19 syndrome Fever Small posterior right pleural effusion Sinus tachycardia Chronic macrocytic anemia -Hospice care has been consulted -Comfort Care measures only -Tylenol 650 mg rectally every 6 hours as needed for mild pain and fever, and N orco 5 every 4 hours as needed for [id number] pain -Morphine 4 mg IV increased to every 4 hours as needed for breakthrough pain -Bowel regimen with MiraLAX daily, Zofran 4 mg IV every 8 hours when necessary for nausea -IV Ativan 1 mg every 6 hours as needed for anxiety -Continue give oral pain and anxiety medication patient is able tolerate DVT ppx: N/A Code status: DNR/DNI Anticipated discharge place: Hospice facility Anticipated discharge time: When bed available Objective - Vital Signs Vital signs: Vital Signs Temp 100.1 F H 05/24/22 02:00 Pulse 102 H 05/24/22 02:00 Resp 22 05/24/22 02:00 BP 162/79 05/24/22 02:00 Pulse Ox 96 05/24/22 02:00 FiO2 Intake & Output 05/23/22 05/24/22 05/24/22 18:59 06:59 18:59 Output Total 0 Balance 0 Weight 58.967 kg Output: Urine 0 Other: Voiding Method Incontinent # Voids 3 # Bowel Movements 1 - Labs CBC & Chem 7: 05/23/22 06:54 05/23/22 06:54 Labs: Abnormal Lab Results - Last 24 Hours (Table) 05/23/22 05/23/22 05/23/22 Range/Units 08:50 16:47 20:06 Troponin I 0.047 H* 0.043 H* (0.000-0.034) ng/mL Procalcitonin 0.12 H (0.02-0.09) ng/mL 05/23/22 Range/Units 23:03 Troponin I 0.050 H* (0.000-0.034) ng/mL Procalcitonin (0.02-0.09) ng/mL Microbiology - Last 24 Hours (Table) 05/23/22 06:50 Blood Culture - Preliminary Blood No Growth after 24 hours 05/23/22 06:35 Blood Culture - Preliminary Blood No Growth after 24 hours 05/23/22 06:56 Urine Culture - Preliminary Urine,Catheterized
[2022-05-24] MEDS: LORazepam 2 MG/ML INJ IV PRN ×2 (11:47→19:44)
[2022-05-24] MEDS: HYDROcodone/APAP 5-325MG 1 EACH TAB PO PRN (19:44)
[2022-05-25] MEDS: HYDROcodone/APAP 5-325MG 1 EACH TAB PO PRN ×3 (00:28→12:41)
[2022-05-25] MEDS: LORazepam 2 MG/ML INJ IV PRN (03:11)
[2022-05-25] MEDS: MORPHINE SULFATE 4 MG/ML SYRINGE IV PRN (08:54)
[2022-05-25 11:19] VITALS: PULSE 102
[2022-05-25] MEDS: LORazepam 0.5 MG TAB PO PRN (12:41)
[2022-05-25 15:36] VITALS: BP 113/69; RESP 17; TEMP 97.4
--- NOTE | 2022-05-25 15:38 | P.DS ---
Providers Date of admission: 05/23/22 09:29 Expected date of discharge: 05/25/22 Attending physician: Nicholas Candelaria MD Primary care physician: [facility] Hospital Course: 71-year-old female with multiple comorbidities, recent left intertrochanteric hip fracture status post surgery presenting from nursing/rehab facility with acute encephalopathy and shortness of breath. In the ED, patient was febrile at 101.1, tachycardic to 107, blood pressure 119/86, saturating well on room air. Laboratory workup significant for hemoglobin of 10.3, platelets 157, potassium 3.7, creatinine 0.69, troponin less than 0.012, CRP at 1.2, urinalysis positive for nitrites, and leukocyte esterase, COVID-19 positive, urine tox positive for opiates and benzos. Chest x-ray showed small posterior right pleural effusion. Family had already began discussion with regards to hospice care all she was at rehab facility. Family does not want to pursue further treatment, wants to continue hospice care. Hospice was consulted in the ED, and would like to admit patient in the hospital for placement purposes as she is COVID-19 positive. Family was agreeable for [facility]. Patient was subsequently discharged on 05/25. Pertinent studies include chest x-ray. Patient was seen and examined. General: nontoxic, frail appearing, appears uncomfortable Derm: warm, dry Head: atraumatic, normocephalic, symmetric Eyes: EOMI, no lid lag, anicteric sclera ENT: Nose and ears atraumatic Neck: No thyromegaly, supple Mouth: no lip lesion, mucus membranes moist Cardiovascular: S1S2 reg, no murmur, no edema Lungs: clear to auscultation bilateral, no rhonchi, no rales, no wheeze, no accessory muscle use Ext: no gross muscle atrophy, muscle strength muscle strength 4 out of 5 in all 4 extremities, no contractures Psych: Alert, oriented 0, not following commands Discharge diagnosis: Acute metabolic encephalopathy Acute COVID-19 syndrome Fever Small posterior right pleural effusion Sinus tachycardia Chronic macrocytic anemia Patient will be discharged to [facility] with the diagnosis of end stage dementia. This complex discharge took 35 minutes to complete. Patient Condition at Discharge: Stable Plan - Discharge Summary Discharge Rx Participant: No New Discharge Prescriptions: Continue Topiramate 50 mg PO DAILY Mometasone/Formoterol [Dulera 200 Mcg-5 Mcg Inhaler] 2 puff INHALATION RT-BID Levothyroxine Sodium [Synthroid] 25 mcg PO DAILY Cyclobenzaprine [Flexeril] 5 mg PO BID PRN PRN Reason: Muscle Pain Cetirizine HCl 10 mg PO DAILY Aspirin 81 mg PO BID 30 Days #60 tab Docusate [Colace] 100 mg PO BID #60 capsule Ferrous Sulfate [Iron (65 MG Elemental)] 325 mg PO DAILY HYDROcodone/APAP 5-325MG [[place] 5-325] 1 tab PO Q6H PRN PRN Reason: Pain Sertraline [Zoloft] 200 mg PO DAILY Lactose-Reduced Food [Ensure Plus] 1 can PO BID@0900,1700 LORazepam [Ativan] 1 mg PO TID@0900,1300,2100 Dicyclomine [Bentyl] 10 mg PO BID PRN PRN Reason: Gi Upset Cholestyramine (with Sugar) [Cholestyramine Powder] 4 gm PO BID Cholecalciferol [Vitamin D3 (25 Mcg = 1000 Iu)] 50 mcg PO DAILY azaTHIOprine [Imuran] 50 mg PO DAILY Albuterol Inhaler [Ventolin Hfa Inhaler] 2 puff INHALATION RT-Q6H PRN PRN Reason: Shortness Of Breath Acetaminophen Tab [Tylenol] 650 mg PO Q6HR PRN tab PRN Reason: Mild Pain Or Fever > 100.5 Discontinued metroNIDAZOLE 1% GEL [Metrogel 1%] 1 applic TOPICAL DAILY PRN PRN Reason: Rash Discharge Medication List Albuterol Inhaler [Ventolin Hfa Inhaler] 2 puff INHALATION RT-Q6H PRN 05/09/22 [History] Cetirizine HCl 10 mg PO DAILY 05/09/22 [History] Cholecalciferol [Vitamin D3 (25 Mcg = 1000 Iu)] 50 mcg PO DAILY 05/09/22 [History] Cholestyramine (with Sugar) [Cholestyramine Powder] 4 gm PO BID 05/09/22 [History] Cyclobenzaprine [Flexeril] 5 mg PO BID PRN 05/09/22 [History] Dicyclomine [Bentyl] 10 mg PO BID PRN 05/09/22 [History] LORazepam [Ativan] 1 mg PO TID@0900,1300,2100 05/09/22 [History] Lactose-Reduced Food [Ensure Plus] 1 can PO BID@0900,1700 05/09/22 [History] Levothyroxine Sodium [Synthroid] 25 mcg PO DAILY 05/09/22 [History] Mometasone/Formoterol [Dulera 200 Mcg-5 Mcg Inhaler] 2 puff INHALATION RT-BID 05/09/22 [History] Sertraline [Zoloft] 200 mg PO DAILY 05/09/22 [History] Topiramate 50 mg PO DAILY 05/09/22 [History] azaTHIOprine [Imuran] 50 mg PO DAILY 05/09/22 [History] Acetaminophen Tab [Tylenol] 650 mg PO Q6HR PRN tab 05/13/22 [Rx] Aspirin 81 mg PO BID 30 Days #60 tab 05/13/22 [Rx] Docusate [Colace] 100 mg PO BID #60 capsule 05/13/22 [Rx] Ferrous Sulfate [Iron (65 MG Elemental)] 325 mg PO DAILY 05/23/22 [History] HYDROcodone/APAP 5-325MG [[place] 5-325] 1 tab PO Q6H PRN 05/23/22 [History] Follow up Appointment(s)/Referral(s): Ciro Hagan MD [STAFF PHYSICIAN] - 1-2 days Discharge Disposition: DISCH TO [facility]
== END 2022-05-25 18:14 | disposition hospice, inpatient (51) | DRG 177 ==
LOC: SUPCPDRO 06:12 → EC 06:12 → UNDOADMIN 09:29 → 4SSUR 09:29 → 5NMEDONC 09:29 → 4SSUR 12:51
PROVIDERS: ADMIT Internal Medicine; ATTEND Internal Medicine
DX: U07.1 COVID-19 (principal); G93.41 Metabolic encephalopathy; N39.0 Urinary tract infection, site not specified; J90 Pleural effusion, not elsewhere classified; K50.90 Crohn's disease, unspecified, without complications; E46 Unspecified protein-calorie malnutrition; B96.20 Unspecified Escherichia coli [E. coli] as the cause of diseases classified elsewhere; D53.9 Nutritional anemia, unspecified; J44.9 Chronic obstructive pulmonary disease, unspecified; I10 Essential (primary) hypertension; F31.9 Bipolar disorder, unspecified; F17.290 Nicotine dependence, other tobacco product, uncomplicated; Z68.23 Body mass index [BMI] 23.0-23.9, adult; F03.90 Unspecified dementia, unspecified severity, without behavioral disturbance, psychotic disturbance, mood disturbance, and anxiety; Z66 Do not resuscitate; Z51.5 Encounter for palliative care; Z79.899 Other long term (current) drug therapy; Z79.890 Hormone replacement therapy; S72.142D Displaced intertrochanteric fracture of left femur, subsequent encounter for closed fracture with routine healing; Z79.82 Long term (current) use of aspirin; Z79.624 Long term (current) use of inhibitors of nucleotide synthesis; Z79.51 Long term (current) use of inhaled steroids; Z91.041 Radiographic dye allergy status
CPT/HCPCS: 36415; 71046; 80053; 80306; 81001; 83605; 84145; 84484; 85025; 85610; 85652; 85730; 86140; 87040; 87077; 87086; 87186; 87636; 93005; 96361; 96365; 99285